=== PATIENT | female | born 1950 | race Caucasian/White ===

== ENCOUNTER 2023-05-12 10:44 | Inpatient (IN) ==
--- NOTE | 2023-05-12 10:50 | Emergency Department Note ---
HPI General Chief complaint: Nausea/Vomiting/Diarrhea Stated complaint: diarrhea, nausea/vomiting Time Seen by Provider: 05/12/23 10:50 Mode of arrival: wheelchair History of Present Illness HPI Narrative: Narrative: Patient is a 72-year-old female with a complex history who presents to the emergency department due to diarrhea and lack of appetite. Patient has been seen 2 times prior to today in the last half week. EMS was called for patient, and they found the patient had tachycardia. Patient is nonverbal, so patient's provides history. He denies any other findings aside from the diarrhea and difficulty getting patient to eat or take medication. Related Data Home Medications Medication Instructions Recorded Confirmed aspirin 81 mg tablet,delayed 81 mg PO QDAY 11/16/19 05/12/23 release (Adult Low Dose Aspirin) acetaminophen 500 mg tablet 500 mg PO Q6H PRN Pain 12/18/20 05/12/23 gabapentin 300 mg capsule 300 mg PO BID 12/23/21 05/12/23 quetiapine 25 mg tablet (Seroquel) 25 mg PO TID PRN Agitation 05/12/23 05/12/23 Previous Rx's Medication Instructions Recorded venlafaxine 75 mg capsule,extended 75 mg PO QDAY anxiety #90 caps 08/01/22 release 24 hr (Effexor XR) venlafaxine 37.5 mg 37.5 mg PO QDAY #90 caps 04/02/23 capsule,extended release 24 hr levothyroxine 50 mcg tablet 50 mcg PO QDAY #30 tabs 04/17/23 (Levoxyl) lisinopril 10 mg tablet 10 mg PO QDAY #90 tabs 04/17/23 Allergies Allergy/AdvReac Type Severity Reaction Status Date / Time Sulfa (Sulfonamide Allergy Mild Rash Verified 05/12/23 14:34 Antibiotics) codeine AdvReac Mild Confusion Verified 05/12/23 14:34 hydrochlorothiazide AdvReac Mild Hypotension Verified 05/12/23 14:34 Review of Systems ROS ROS Narrative: Narrative: Constitutional: Reports weakness; Denies fever ENT ED: Denies rhinorrhea Respiratory: Denies shortness of breath or cough Gastrointestinal: Reports vomiting (On Thursday) and diarrhea; Denies constipation, hematochezia or melena Integumentary: Denies rash or lesions Neurological: Reports weakness; Denies headache or confusion PFSH Narrative Patient History Narrative: Narrative: Medical/Surgical/Family History All Active Problems (Updated 05/13/23 @ 09:25 by Garrison Hartmann MD) Leukocytosis (Acute) Vomiting (Acute) Dehydration (Acute) Pneumonia (Acute) Atrial fibrillation with RVR (Acute) Whit infection (Acute) Lower extremity weakness (Acute) Acute UTI (Acute) Bacterial vaginosis (Acute) COVID-19 (Acute) Acute hypotension (Acute) Dementia (Acute) Bilateral lower extremity edema (Acute) Depression (Chronic) Hx of left knee surgery (Chronic) Laceration (Chronic) Abdominal pain (Chronic) Sleep apnea (Chronic) Pain of lumbar spine with movement (Chronic) Muscle spasm of back (Chronic) Acute hip pain, bilateral (Chronic) Nocturia more than twice per night (Chronic) Sacroiliac strain (Chronic) Allergic rhinitis (Chronic) Decreased hearing of both ears (Chronic) Anemia (Chronic) Hyperlipidemia (Chronic) Hypothyroidism (Chronic) Osteopenia (Chronic) Leukopenia (Chronic) Anxiety (Chronic) Encounter for therapeutic drug level monitoring (Chronic) Hypertension (Chronic) Psoriasis (Chronic) Seborrheic keratosis (Chronic) Libido, decreased (Chronic) Adrenal cortical hyperfunction (Chronic) Vitamin D deficiency (Chronic) Palpitations (Chronic) Hot flashes (Chronic) Insomnia (Chronic) Fatigue (Chronic) Nervousness (Chronic) Poor sleep (Chronic) History of small bowel obstruction (Chronic ~2014) Hematuria (Chronic) Overactive bladder (Chronic) Urinary frequency (Chronic) Bladder spasm (Chronic) Generalized anxiety disorder (Chronic) Cognitive decline (Chronic) Vaginitis due to Whit (Chronic) Bladder incontinence (Chronic) Wellness examination (Chronic) Memory impairment (Chronic) Neck pain (Chronic) Dementia (Chronic) Parkinsonism (Chronic) Hyperreflexia (Chronic) Apraxia (Chronic) Cognitive dysfunction (Chronic) Recurrent UTI (Chronic) Obesity (Chronic) Cervical spondylosis (Chronic) Spondylosis without myelopathy or radiculopathy, cervical region (Acute) Impacted ear wax (Acute) Chronic pain syndrome (Chronic) Chronic intractable pain (Acute) Cervical radiculopathy (Chronic) Occipital neuralgia (Chronic) Medical History Abdominal pain Adrenal cortical hyperfunction Allergic rhinitis Anemia Anxiety Apraxia Cervical radiculopathy Cervical spondylosis Chronic pain syndrome Cognitive dysfunction Decreased hearing of both ears Dementia Depression Encounter for therapeutic drug level monitoring Fatigue Femur fracture left femur fracture 20 years ago. Gastritis output color normal now on IV PPI, continue IV PPI Hot flashes Hyperlipidemia Hyperreflexia Hypertension Hypothyroidism Ileus following gastrointestinal surgery Peter po. STOP TPN, adv diet. Home tomorrow! Insomnia Laceration Leukopenia Libido, decreased Malnutrition Prealbumin was 9, lower limit normal 20. Given prolonged ileus, TPN has started. Cont likely thru tomorrow Neck pain Nervousness Obesity Occipital neuralgia Osteopenia Palpitations Parkinsonism Poor sleep Psoriasis Recurrent UTI Seborrheic keratosis Sleep apnea uses cpap machine nightly since 2009, [employer] for supplies Small bowel obstruction POD #7 s/p Ex Lap for Small Bowel resection, lysis of adhesions. Tolerating diet, adv diet. Wound vac Spondylosis without myelopathy or radiculopathy, cervical region Vitamin D deficiency Wound abscess Continues to improve daily.Cont wound vac, IV abx while here. OK to shower if pt would like. Surgical History History of arthroscopy (~1993) on leg History of bone graft (~1992) History of (~1978) History of colonoscopy (07/29/18) Dr Breaux, normal History of femur fracture (~1991) shattered History of hysterectomy (~2004) 2002 History of knee surgery (~1994) History of neck surgery 07/2021- History of small bowel obstruction (~2014) Hx of left knee surgery had hardware placed Family History Mother , age 69 Hypertension Stroke Osteoporosis Depression Anxiety Father , age 79 CHF (congestive heart failure) Arthritis Dementia Grandmother Breast cancer maternal Osteoporosis paternal Heart disease paternal Grandfather Heart disease Maternal Brother , age 18 & 21 Muscular dystrophy Both brothers from [place] Social History Smoking Status: Unknown if ever smoked Alcohol Intake Frequency: does not drink Substance Use: does not use Exam Narrative Narrative: Narrative: General General appearance: Present alert and in no apparent distress; Absent anxious or sleepy Head Head: Present atraumatic and normocephalic Eye Eye: Present PERRL and EOMI; Absent scleral icterus or nystagmus ENT ENT: Present mucous membranes moist; Absent nasal congestion Neck Neck: Present full ROM and trachea midline Chest Chest: Present normal inspection and symmetric chest wall rise; Absent tenderness Respiratory Respiratory: Present normal lung sounds bilaterally; Absent respiratory distress, rales/crackles, wheezes, stridor or accessory muscle use Cardiovascular Cardiovascular: Present tachycardia, irregular rhythm and normal heart sounds Adbominal Abdominal: Absent distention Extremities Extremities: Present normal inspection and full ROM Back Back: Present normal inspection and full ROM Neurological Neurological: Present alert and oriented X3 Psychiatric Psychiatric: Present normal affect and normal mood Skin Skin: Present warm (WNL), dry and normal color Course Vital Signs Vital signs: Vital Signs Pulse Rate 28 L 05/12/23 10:55 Blood Pressure 147/106 05/12/23 10:55 Temperature 97.4 F 05/13/23 08:09 Pulse Rate 113 H 05/13/23 08:09 Respiratory Rate 24 H 05/13/23 08:09 Blood Pressure 176/98 05/13/23 08:09 Pulse Oximetry (%) 95 05/13/23 08:09 Oxygen Delivery Method Room Air 05/13/23 08:09 Oxygen Flow Rate (L/min) 3 05/12/23 13:52 MDM MDM Narrative Medical decision making narrative: Narrative: Patient is a 72-year-old female who presents to the emergency department due to diarrhea, weakness, and difficulty getting her to eat/drink/take medications. Patient's rate and rhythm at this time appear to be atrial fibrillation with RVR. EKG was performed, and is confirmed to be A-fib with RVR. Patient was given a dose of diltiazem with improvement in rate. Patient's labs are approximate baseline. Because of new onset A-fib I have spoken to Dr. Sales and he has agreed to see and evaluate patient for admission. Lab Data 05/13/23 05:44 05/13/23 05:44 Labs: Lab Results 05/12/23 05/12/23 05/12/23 Range/Units 11:06 11:08 11:08 WBC 7.8 (4.5-11.0) K/mcL RBC 4.29 (3.59-5.38) M/mcL Hgb 12.5 (11.2-15.7) g/dL Hct 39.1 (34.1-44.9) % POC Hct (36-48) MCV 91.1 (80.0-100.0) fL MCH 29.1 (26.0-34.0) pg MCHC 32.0 (31.0-36.0) g/dL RDW 13.4 (11.5-14.5) % Plt Count 243 (140-440) K/mcL MPV 10.3 (8.8-12.5) fL Immature Gran % (Auto) 0.4 (0.0-0.5) % Neut % (Auto) 68.8 (38.0-78.0) % Lymph % (Auto) 19.6 (15.5-49.0) % [place] % (Auto) 10.3 (1.0-12.0) % Eos % (Auto) 0.1 (0.0-7.0) % Baso % (Auto) 0.8 (0.0-2.0) % Lymph # (Auto) 1.52 (1.50-4.80) K/mcL [place] # (Auto) 0.80 (0.10-0.90) K/mcL Eos # (Auto) 0.01 (0.00-0.70) K/mcL Baso # (Auto) 0.06 (0.00-0.30) K/mcL Immature Gran # 0.03 (0.00-0.05) K/mcl Absolute Neutrophils 5.35 (1.80-8.00) K/mcL POC VBG pH 7.50 H (7.32-7.42) POC VBG pCO2 at Temp 32.3 L (41-51) POC VBG pO2 34 (25-40) POC VBG HCO3 24.9 (24-28) POC VBG Total CO2 26.0 (25-29) POC Venous O2 Sat 71.0 H (40-70) POC VBG Base Excess 2.0 (-2-2) VBG Lactic Acid 1.4 (0.5-2) POC Sodium (133-145) POC Potassium (3.3-5.1) POC Chloride (96-108) POC Total CO2 (22-30) POC Anion Gap (8.0-16.0) POC BUN (6-20) POC Creatinine (0.6-1.2) POC Glucose (70-105) POC WB Ioniz Calcium (1.16-1.32) Magnesium 2.0 (1.6-2.5) mg/dL Procalcitonin (<0.10) ng/mL TSH 2.35 (0.27-5.01) uIU/mL 05/12/23 05/12/23 Range/Units 11:08 11:09 WBC (4.5-11.0) K/mcL RBC (3.59-5.38) M/mcL Hgb (11.2-15.7) g/dL Hct (34.1-44.9) % POC Hct 39.0 (36-48) MCV (80.0-100.0) fL MCH (26.0-34.0) pg MCHC (31.0-36.0) g/dL RDW (11.5-14.5) % Plt Count (140-440) K/mcL MPV (8.8-12.5) fL Immature Gran % (Auto) (0.0-0.5) % Neut % (Auto) (38.0-78.0) % Lymph % (Auto) (15.5-49.0) % [place] % (Auto) (1.0-12.0) % Eos % (Auto) (0.0-7.0) % Baso % (Auto) (0.0-2.0) % Lymph # (Auto) (1.50-4.80) K/mcL [place] # (Auto) (0.10-0.90) K/mcL Eos # (Auto) (0.00-0.70) K/mcL Baso # (Auto) (0.00-0.30) K/mcL Immature Gran # (0.00-0.05) K/mcl Absolute Neutrophils (1.80-8.00) K/mcL POC VBG pH (7.32-7.42) POC VBG pCO2 at Temp (41-51) POC VBG pO2 (25-40) POC VBG HCO3 (24-28) POC VBG Total CO2 (25-29) POC Venous O2 Sat (40-70) POC VBG Base Excess (-2-2) VBG Lactic Acid (0.5-2) POC Sodium 144 (133-145) POC Potassium 3.5 (3.3-5.1) POC Chloride 110 H (96-108) POC Total CO2 23.0 (22-30) POC Anion Gap 16.0 (8.0-16.0) POC BUN 23 H (6-20) POC Creatinine 0.7 (0.6-1.2) POC Glucose 129 H (70-105) POC WB Ioniz Calcium 1.13 L (1.16-1.32) Magnesium (1.6-2.5) mg/dL Procalcitonin 0.57 H (<0.10) ng/mL TSH (0.27-5.01) uIU/mL EKG Data EKG #1: EKG attestation: Yes I reviewed and interpreted this EKG. EKG results narrative: Atrial fibrillation with a rate of 135, equivocal axis, QRS of 92, QTc of 455, T wave inversions in leads I and aVL, T wave flattening in leads V5 and V6, and absence of ST elevation or depression. Discharge Plan Patient/Caregiver Discharge Instructions Pt seen by ANALYSIS CONSULTANT/PA only: No Clinical Impression: Atrial fibrillation with RVR Patient Disposition: Xfer As Inpt ([facility]) Condition: Fair Discharge Date/Time: 05/12/23 13:52
[2023-05-12] MEDS ORDERED: 0.9 % SODIUM CHLORIDE 1,000 ML IV ONE (11:01)
[2023-05-12] MEDS ORDERED: DILTIAZEM 25 MG/5 ML VIAL IV ONE (11:11)
[2023-05-12 11:14] LABS: POC Calcium, Ionized 1.13 (1.16-1.32); POC Creatinine 0.7 (0.6-1.2); POC Potassium 3.5 (3.3-5.1)
[2023-05-12 12:14] LABS: Basophils # (Auto) 0.06 K/mcL (0.00-0.30); Basophils % (Auto) 0.8 % (0.0-2.0); Eosinophils # (Auto) 0.01 K/mcL (0.00-0.70); Eosinophils % (Auto) 0.1 % (0.0-7.0); Hematocrit 39.1 % (34.1-44.9); Hemoglobin 12.5 g/dL (11.2-15.7); Lymphocytes # (Auto) 1.52 K/mcL (1.50-4.80); Lymphocytes % (Auto) 19.6 % (15.5-49.0); Mean Cell Volume 91.1 fL (80.0-100.0); Mean Platelet Volume 10.3 fL (8.8-12.5); Monocytes % (Auto) 10.3 % (1.0-12.0); Platelet Count 243 K/mcL (140-440); RBC 4.29 M/mcL (3.59-5.38); Red Cell Distribution Width 13.4 % (11.5-14.5); WBC 7.8 K/mcL (4.5-11.0)
--- NOTE | 2023-05-12 13:07 | Internal Med History&Physical ---
HPI History of Present Illness Patient information: Note initiated : 05/12/23 at 12:58 pm Service Date, if different from initiated Date: [] Patient: Tiffanie Rg a 72 y/o F admitted on for diarrhea, nausea/vomiting. Chief Complaint: [] History of present illness: Ms. Rg is a 72 year old F Presents to the ED with increasing weakness. She been to the ED several times was hydrated up with improvement and returned back home. She has advanced dementia is nonverbal and has decreasing appetite. Goals of care and end-of-life discussions were started with who is a resistant to the conversation at first but has since started to possibly accept her situation per discussion in ED with ED provider. She has had diarrhea as well and is found to have tachycardia that was atrial fibrillation today. She was given a diltiazem bolus dose with improvement. BUN/creatinine ratio was elevated but improved from yesterday. Review of systems: Unable to obtain given patient's advanced dementia PHYSICAL EXAM General: Alert, Awake, No acute Distress, obese Eyes/N/T: EOMI, no scleral icterus, PERRL, dry MM Head/Neck: neck supple, full ROM, normocephalic atraumatic CV: Tacky and irregular, No murmurs, normal s1/s2 Pulm: Clear b/l, no wheezing/rhonchi/rales, no respiratory distress Abd: soft, nontender, +BS x4 Ext: no clubbing/cyanosis, trace b/l LE edema, nontender Neuro: Alert, non-verbal but follows some commands, moves all extremities, Psychiatric: Skin: warm/dry, normal color PFSH PFSH All Active Problems (Updated 05/11/23 @ 15:05 by Garrison Hartmann MD) Leukocytosis (Acute) Vomiting (Acute) Dehydration (Acute) Pneumonia (Acute) Whit infection (Acute) Lower extremity weakness (Acute) Acute UTI (Acute) Bacterial vaginosis (Acute) COVID-19 (Acute) Acute hypotension (Acute) Dementia (Acute) Bilateral lower extremity edema (Acute) Depression (Chronic) Hx of left knee surgery (Chronic) Laceration (Chronic) Abdominal pain (Chronic) Sleep apnea (Chronic) Pain of lumbar spine with movement (Chronic) Muscle spasm of back (Chronic) Acute hip pain, bilateral (Chronic) Nocturia more than twice per night (Chronic) Sacroiliac strain (Chronic) Allergic rhinitis (Chronic) Decreased hearing of both ears (Chronic) Anemia (Chronic) Hyperlipidemia (Chronic) Hypothyroidism (Chronic) Osteopenia (Chronic) Leukopenia (Chronic) Anxiety (Chronic) Encounter for therapeutic drug level monitoring (Chronic) Hypertension (Chronic) Psoriasis (Chronic) Seborrheic keratosis (Chronic) Libido, decreased (Chronic) Adrenal cortical hyperfunction (Chronic) Vitamin D deficiency (Chronic) Palpitations (Chronic) Hot flashes (Chronic) Insomnia (Chronic) Fatigue (Chronic) Nervousness (Chronic) Poor sleep (Chronic) History of small bowel obstruction (Chronic ~2014) Hematuria (Chronic) Overactive bladder (Chronic) Urinary frequency (Chronic) Bladder spasm (Chronic) Generalized anxiety disorder (Chronic) Cognitive decline (Chronic) Vaginitis due to Whit (Chronic) Bladder incontinence (Chronic) Wellness examination (Chronic) Memory impairment (Chronic) Neck pain (Chronic) Dementia (Chronic) Parkinsonism (Chronic) Hyperreflexia (Chronic) Apraxia (Chronic) Cognitive dysfunction (Chronic) Recurrent UTI (Chronic) Obesity (Chronic) Cervical spondylosis (Chronic) Spondylosis without myelopathy or radiculopathy, cervical region (Acute) Impacted ear wax (Acute) Chronic pain syndrome (Chronic) Chronic intractable pain (Acute) Cervical radiculopathy (Chronic) Occipital neuralgia (Chronic) Medical History Abdominal pain Adrenal cortical hyperfunction Allergic rhinitis Anemia Anxiety Apraxia Cervical radiculopathy Cervical spondylosis Chronic pain syndrome Cognitive dysfunction Decreased hearing of both ears Dementia Depression Encounter for therapeutic drug level monitoring Fatigue Femur fracture left femur fracture 20 years ago. Gastritis output color normal now on IV PPI, continue IV PPI Hot flashes Hyperlipidemia Hyperreflexia Hypertension Hypothyroidism Ileus following gastrointestinal surgery Peter po. STOP TPN, adv diet. Home tomorrow! Insomnia Laceration Leukopenia Libido, decreased Malnutrition Prealbumin was 9, lower limit normal 20. Given prolonged ileus, TPN has started. Cont likely thru tomorrow Neck pain Nervousness Obesity Occipital neuralgia Osteopenia Palpitations Parkinsonism Poor sleep Psoriasis Recurrent UTI Seborrheic keratosis Sleep apnea uses cpap machine nightly since 2009, [employer] for supplies Small bowel obstruction POD #7 s/p Ex Lap for Small Bowel resection, lysis of adhesions. Tolerating diet, adv diet. Wound vac Spondylosis without myelopathy or radiculopathy, cervical region Vitamin D deficiency Wound abscess Continues to improve daily.Cont wound vac, IV abx while here. OK to shower if pt would like. Surgical History History of arthroscopy (~1993) on leg History of bone graft (~1992) History of (~1978) History of colonoscopy (07/29/18) Dr Breaux, normal History of femur fracture (~1991) shattered History of hysterectomy (~2004) 2002 History of knee surgery (~1994) History of neck surgery 07/2021- History of small bowel obstruction (~2014) Hx of left knee surgery had hardware placed Family History Mother , age 69 Hypertension Stroke Osteoporosis Depression Anxiety Father , age 79 CHF (congestive heart failure) Arthritis Dementia Grandmother Breast cancer maternal Osteoporosis paternal Heart disease paternal Grandfather Heart disease Maternal Brother , age 18 & 21 Muscular dystrophy Both brothers from [place] Social History household members: spouse marital status: education level: college occupation: House other: Hobbies: Gardening, Reading, Scrapbooking physical activity: walking frequency: 3-4 times per week smoking status: Unknown if ever smoked alcohol intake frequency: does not drink substance use type: does not use cristina/yazidi: Gnosticism additional history: Has 1 child, 1 grandchild MEDS/ALLERGIES Home Medications and Allergies Home Medications Medication Instructions Recorded Confirmed Type aspirin 81 mg tablet,delayed 81 mg PO QDAY 11/16/19 04/08/23 History release (Adult Low Dose Aspirin) acetaminophen 500 mg tablet 500 mg PO Q6H PRN Pain 12/18/20 04/08/23 History gabapentin 300 mg capsule 300 mg PO BID 12/23/21 04/08/23 History venlafaxine 75 mg capsule,extended 75 mg PO QDAY anxiety #90 caps 08/01/22 04/08/23 Rx release 24 hr (Effexor XR) mupirocin 2 % topical ointment 1 applic topical TID #15 grams 08/12/22 04/08/23 Rx nystatin 100,000 unit/gram topical 1 applic topical QID #30 grams 01/23/23 04/08/23 Rx ointment quetiapine 25 mg tablet (Seroquel) 25 mg PO TID PRN withdrawal 01/23/23 04/08/23 Rx symptoms #90 tabs venlafaxine 37.5 mg 37.5 mg PO QDAY #90 caps 04/02/23 04/08/23 Rx capsule,extended release 24 hr levothyroxine 50 mcg tablet 50 mcg PO QDAY #30 tabs 04/17/23 Rx (Levoxyl) lisinopril 10 mg tablet 10 mg PO QDAY #90 tabs 04/17/23 Rx azithromycin 250 mg tablet 250 mg PO QDAY 4 days #4 tabs 05/09/23 Rx cefdinir 300 mg capsule 300 mg PO BID #12 caps 05/09/23 Rx Allergies Allergy/AdvReac Type Severity Reaction Status Date / Time codeine Allergy Intermediate Confusion Verified 05/12/23 11:01 Sulfa (Sulfonamide Allergy Intermediate Rash Verified 05/12/23 11:01 Antibiotics) hydrochlorothiazide AdvReac Intermediate Hypotension Verified 05/12/23 11:01 EXAM Constitutional Vitals: Temp Pulse Resp BP Pulse Ox O2 Del Method 97.6 F 108 H 22 135/91 95 Room Air 05/12/23 10:59 05/12/23 12:31 05/12/23 12:35 05/12/23 12:31 05/12/23 10:59 05/12/23 10:59 DATA Data Completed and Pending Labs: Labs from last 24 hours 05/12/23 05/12/23 05/12/23 11:09 11:08 11:08 WBC RBC Hgb Hct POC Hct 39.0 MCV MCH MCHC RDW Plt Count MPV Immature Gran % (Auto) Neut % (Auto) Lymph % (Auto) [place] % (Auto) Eos % (Auto) Baso % (Auto) Lymph # (Auto) [place] # (Auto) Eos # (Auto) Baso # (Auto) Immature Gran # Absolute Neutrophils POC VBG pH POC VBG pCO2 at Temp POC VBG pO2 POC VBG HCO3 POC VBG Total CO2 POC Venous O2 Sat POC VBG Base Excess VBG Lactic Acid POC Sodium 144 POC Potassium 3.5 POC Chloride 110 H POC Total CO2 23.0 POC Anion Gap 16.0 POC BUN 23 H POC Creatinine 0.7 POC Glucose 129 H POC WB Ioniz Calcium 1.13 L Magnesium Pending Procalcitonin Pending TSH Pending 05/12/23 05/12/23 11:08 11:06 WBC 7.8 RBC 4.29 Hgb 12.5 Hct 39.1 POC Hct MCV 91.1 MCH 29.1 MCHC 32.0 RDW 13.4 Plt Count 243 MPV 10.3 Immature Gran % (Auto) 0.4 Neut % (Auto) 68.8 Lymph % (Auto) 19.6 [place] % (Auto) 10.3 Eos % (Auto) 0.1 Baso % (Auto) 0.8 Lymph # (Auto) 1.52 [place] # (Auto) 0.80 Eos # (Auto) 0.01 Baso # (Auto) 0.06 Immature Gran # 0.03 Absolute Neutrophils 5.35 POC VBG pH 7.50 H POC VBG pCO2 at Temp 32.3 L POC VBG pO2 34 POC VBG HCO3 24.9 POC VBG Total CO2 26.0 POC Venous O2 Sat 71.0 H POC VBG Base Excess 2.0 VBG Lactic Acid 1.4 POC Sodium POC Potassium POC Chloride POC Total CO2 POC Anion Gap POC BUN POC Creatinine POC Glucose POC WB Ioniz Calcium Magnesium Procalcitonin TSH A/P Narrative A/P Narrative: A: *A-fib RVR(new): -ABCD=4 *Diarrhea: *Advanced dementia with poor appetite and generalized decline *Generalized weakness/deconditioning: *Volume depletion: *Obesity: BMI 37 *EMILY on CPAP: *HTN: *Depression/anxiety: *Hypothyroidism: Check TSH and continue Synthroid *Goals of care: P: -lopressor -discuss AC with -monitor tele -echo -IVF -stool studies -UA - -cont home ACEI, asa, psych meds -Home medication reconciliation -pt/OT - -Goals of care discussion with -CM for placement -ppx: Lovenox Time Spent With Patient Time: Total time spent is greater than 50% in coordination of care (as documented) at patient's floor/unit and/or counseling patient: Initial: Total time with patient: 75 - 90 minutes
[2023-05-12 13:08] LABS: Neutrophils % (Auto) 68.8 % (38.0-78.0)
[2023-05-12 13:23] LABS: Thyroid Stimulating Hormone 2.35 uIU/mL (0.27-5.01)
[2023-05-12] MEDS ORDERED: POTASSIUM CHLORIDE 40 MEQ in DEXTROSE 5% IN WATER 500 ML IV PRN (14:04)
[2023-05-12] MEDS ORDERED: IPRATROPIUM/ALBUTEROL 3 ML AMPUL.NEB NEB PRN (14:04)
[2023-05-12] MEDS ORDERED: POTASSIUM CHLORIDE 20 MEQ TABLET PO PRN ×2 (14:04)
[2023-05-12] MEDS ORDERED: ONDANSETRON 4 MG/2 ML VIAL IV PRN (14:04)
[2023-05-12] MEDS ORDERED: MAGNESIUM SULFATE 2 GM/50 ML BAG IV PRN (14:04)
--- NOTE | 2023-05-12 14:10 | EKG ---
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
[2023-05-12] MEDS: 0.9 % SODIUM CHLORIDE 1,000 ML IV SCH (14:12)
[2023-05-12] MEDS: cefTRIAXone 2 GM in DEXTROSE 5% IN WATER 50 ML IV SCH (14:21)
[2023-05-12] MEDS: AZITHROMYCIN 500 MG in DEXTROSE 5% IN WATER 250 ML IV SCH (16:24)
[2023-05-12 16:50] LABS: Appearance,Urine TURBID (Clear); Bilirubin,Urine Negative (Negative); Color,Urine Yellow; Culture Indicated,Urine yes; Glucose,Urine (UA) Negative (Negative); Ketones,Urine 20 mg/dL (Negative); Leukocyte Esterase,Urine 500 /uL (Negative); Mucus,Urine FEW /hpf; Nitrate,Urine Negative (Negative); Protein,Urine 100 mg/dL (Negative); Specific Gravity,Urine 1.025 (1.000-1.035); Urine Blood >=1.0 mg/dL (Negative); Urine RBC 43 /hpf (0-3); Urine Squamous Epithelial Cell 1 /hpf (0-4); Urine WBC > 182 /hpf (0-4); Urobilinogen,Urine Negative
[2023-05-12] MEDS: METOPROLOL TARTRATE 5 MG/5 ML VIAL IV PRN (19:15)
[2023-05-12] MEDS: ENOXAPARIN 40 MG/0.4 ML SYRINGE SQ SCH (21:11)
[2023-05-12] MEDS: METOPROLOL TARTRATE 25 MG TABLET PO SCH (21:11)
[2023-05-13] MEDS: METOPROLOL TARTRATE 5 MG/5 ML VIAL IV PRN ×3 (00:28→18:30)
[2023-05-13] MEDS: 0.9 % SODIUM CHLORIDE 1,000 ML IV SCH (02:28)
[2023-05-13 07:21] LABS: Basophils # (Auto) 0.05 K/mcL (0.00-0.30); Basophils % (Auto) 0.9 % (0.0-2.0); Eosinophils # (Auto) 0.02 K/mcL (0.00-0.70); Eosinophils % (Auto) 0.4 % (0.0-7.0); Hematocrit 38.2 % (34.1-44.9); Lymphocytes # (Auto) 1.66 K/mcL (1.50-4.80); Lymphocytes % (Auto) 29.7 % (15.5-49.0); Mean Cell Volume 93.6 fL (80.0-100.0); Mean Corpuscular HGB Conc 31.4 g/dL (31.0-36.0); Mean Platelet Volume 10.5 fL (8.8-12.5); Monocytes # (Auto) 0.87 K/mcL (0.10-0.90); Monocytes % (Auto) 15.6 % (1.0-12.0); Platelet Count 251 K/mcL (140-440); RBC 4.08 M/mcL (3.59-5.38); Red Cell Distribution Width 13.4 % (11.5-14.5)
[2023-05-13] MEDS: ENOXAPARIN 40 MG/0.4 ML SYRINGE SQ SCH (07:30)
[2023-05-13] MEDS: cefTRIAXone 2 GM in DEXTROSE 5% IN WATER 50 ML IV SCH (07:30)
[2023-05-13] MEDS: METOPROLOL TARTRATE 25 MG TABLET PO SCH ×2 (07:30→20:54)
[2023-05-13 07:34] LABS: ALT/SGPT 79 U/L (<40); AST/SGOT 84 U/L (<32); Albumin 2.6 gm/dL (3.2-5.2); Albumin/Globulin Ratio 0.9 (1.0-2.3); Alkaline Phosphatase 81 U/L (39-117); Bilirubin,Direct < 0.2 mg/dL (0-0.3); Bilirubin,Total 0.3 mg/dL (0.1-1.0); Blood Urea Nitrogen 14 mg/dL (8-23); Carbon Dioxide 19 mmol/L (22-30); Chloride 112 mmol/L (96-108); Globulin 2.8 gm/dL (2.2-3.7); Glomerular Filtration Rate 89; Glucose 123 mg/dL (70-105); Lactate Dehydrogenase 270 U/L (135-225); Phosphorous 1.6 mg/dL (2.5-4.5); Triglycerides 102 mg/dL (<150); Uric Acid 3.7 mg/dL (2.5-8.0)
[2023-05-13 07:48] LABS: WBC 5.6 K/mcL (4.5-11.0)
[2023-05-13] MEDS ORDERED: QUEtiapine 25 MG TABLET PO PRN (07:48)
--- NOTE | 2023-05-13 07:52 | Internal Med Progress Note ---
SUBJECTIVE Subjective Patient information: Note initiated : 05/13/23 at 7:43 am Service Date, if different from initiated Date: [] Patient: Tiffanie Rg 72 y/o F admitted on 05/12/23 for diarrhea, n ausea/vomiting. Chief Complaint: [] Interval history: History of present illness: Ms. Rg is a 72 year old F Presents to the ED with increasing weakness. She been to the ED several times was hydrated up with improvement and returned back home. She has advanced dementia is nonverbal and has decreasing appetite. Goals of care and end-of-life discussions were started with who is a resistant to the conversation at first but has since started to possibly accept her situation per discussion in ED with ED provider. She has had diarrhea as well and is found to have tachycardia that was atrial fibrillation today. She was given a diltiazem bolus dose with improvement. BUN/creatinine ratio was elevated but improved from yesterday. 05/13 No overnight events. Diarrhea overnight and pending fecal WBCs. C. difficile negative. suspected bandemia on auto differential, manual differential pending. hypophosphatemia. Mild transaminitis. PCT elevated Review of systems: Unable to obtain given patient's advanced dementia PHYSICAL EXAM General: Alert, Awake, No acute Distress, obese Eyes/N/T: EOMI, no scleral icterus, Head/Neck: neck supple, full ROM, CV: Tacky and irregular, No murmurs, Pulm: Clear b/l, no wheezing/rhonchi/rales, no respiratory distress Abd: soft, nontender, +BS x4 Ext: no clubbing/cyanosis, trace b/l LE edema, nontender Neuro: Alert, non-verbal but follows some commands, moves all extremities, Psychiatric: Skin: warm/dry, normal color Constitutional Vitals: Vital Signs Temp Pulse Resp BP Pulse Ox O2 Del Method O2 Flow Rate 100.3 F H 106 H 26 H 144/98 94 Room Air 3 05/13/23 04:01 05/13/23 06:01 05/13/23 06:01 05/13/23 06:01 05/13/23 06:40 05/13/23 06:40 05/12/23 13:52 Period Temp Pulse Resp BP Sys/Cole Pulse Ox O2 Del Method O2 Flow Rate Last 24 Hr 97.6 F-100.3 F 28-140 17-27 114-171/59-106 85-97 Room Air-Room Air 3 Intake and Output 05/12/23 05/13/23 05/13/23 19:59 03:59 11:59 Intake Total 1420 1060 Output Total 150 101 2 Balance 1270 959 -2 Weight 103.328 kg Intake & Output: Intake & Output 05/12/23 05/13/23 05/13/23 19:59 03:59 11:59 Intake Total 1420 1060 Output Total 150 101 2 Balance 1270 959 -2 Weight 103.328 kg Intake: IV 1300 1000 Sodium Chloride 0.9% 1,000 ml @ 1000 1000 100 mls/hr IV .Q10H [facility] Rx#: [id number] Zithromax 500 mg In Dextrose 5% 250 in Water 250 ml @ 250 mls/hr IV Q24H [facility] Rx#:[id number] Rocephin 2 gm In Dextrose 5% in 50 Water 50 ml @ 100 mls/hr IV Q24H [facility] Rx#:[id number] Oral 120 60 Output: Void Amount 150 100 # of times incontinent of urine 1 2 Other: Meal Apple sauce Percent of Meal Consumed 100% Feeding Ability Total Assistance Urine Appearance Clear Clear Urine Color Bright Yellow Bright Yellow Yellow Stool Size Small Smear Small Stool Color Brown Brown Brown Yellow Yellow Stool Consistency Liquid Liquid Loose # of times incontinent of 1 1 1 Bowels OBJ DATA Labs 05/13/23 05:44 05/13/23 05:44 Labs: Abnormal Lab Results 05/13/23 05/13/23 05/12/23 05:44 05:44 16:00 Immature Gran % (Auto) 1.4 H [place] % (Auto) 15.6 H Immature Gran # 0.08 H POC VBG pH POC VBG pCO2 at Temp POC Venous O2 Sat POC Chloride Chloride 112 H Carbon Dioxide 19 L POC BUN Glucose 123 H POC Glucose Calcium 8.0 L POC WB Ioniz Calcium Phosphorus 1.6 L AST 84 H ALT 79 H Lactate Dehydrogenase 270 H Total Protein 5.4 L Albumin 2.6 L Albumin/Globulin Ratio 0.9 L Procalcitonin Urine Appearance Turbid A Urine Protein 100 A Urine Ketones 20 A Urine Occult Blood >=1.0 A Ur Leukocyte Esterase 500 A Urine RBC 43 H Urine WBC > 182 H Urine Mucus Few A 05/12/23 05/12/23 05/12/23 11:09 11:08 11:06 Immature Gran % (Auto) [place] % (Auto) Immature Gran # POC VBG pH 7.50 H POC VBG pCO2 at Temp 32.3 L POC Venous O2 Sat 71.0 H POC Chloride 110 H Chloride Carbon Dioxide POC BUN 23 H Glucose POC Glucose 129 H Calcium POC WB Ioniz Calcium 1.13 L Phosphorus AST ALT Lactate Dehydrogenase Total Protein Albumin Albumin/Globulin Ratio Procalcitonin 0.57 H Urine Appearance Urine Protein Urine Ketones Urine Occult Blood Ur Leukocyte Esterase Urine RBC Urine WBC Urine Mucus Meds: Medications Albuterol/Ipratropium (Ipratropium/Albuterol 3 Ml Ampul.Neb) 3 ml NEB Q4HP PRN PRN Reason: Shortness Of Breath Enoxaparin Sodium (Enoxaparin 40 Mg/0.4 Ml Syringe) 40 mg SQ BID [facility] Last Admin: 05/13/23 07:30 Dose: 40 mg Potassium Chloride 40 meq/ (Dextrose) 520 mls @ 130 mls/hr IV UD PRN PRN Reason: Potassium Level < 3 Magnesium Sulfate (Magnesium Sulfate) 2 gm in 50 mls @ 25 mls/hr IV UD PRN PRN Reason: Magnesium Level </= 1.6 Sodium Chloride (Sodium Chloride 0.9%) 1,000 mls @ 100 mls/hr IV .Q10H [facility] Stop: 05/13/23 10:03 Last Admin: 05/13/23 02:28 Dose: 100 mls/hr Ceftriaxone Sodium 2 gm/ (Dextrose) 50 mls @ 100 mls/hr IV Q24H [facility]; Protocol Last Admin: 05/13/23 07:30 Dose: 100 mls/hr Azithromycin 500 mg/ Dextrose 250 mls @ 250 mls/hr IV Q24H [facility]; Protocol Stop: 05/14/23 15:59 Last Infusion: 05/12/23 17:32 Dose: Infused Metoprolol Tartrate (Metoprolol Tartrate 5 Mg/5 Ml Vial) 5 mg IV Q2HP PRN PRN Reason: Tachyarrhythmias HR>110 Last Admin: 05/13/23 04:58 Dose: 5 mg Metoprolol Tartrate (Metoprolol Tartrate 25 Mg Tablet) 25 mg PO BID [facility] Last Admin: 05/13/23 07:30 Dose: 25 mg Ondansetron HCl (Ondansetron 4 Mg/2 Ml Vial) 4 mg IV Q4HP PRN PRN Reason: Nausea And Vomiting Potassium Chloride (Potassium Chloride 20 Meq Tablet) 40 meq PO UD PRN PRN Reason: Potassium Level of 3-3.5 Last Admin: 05/12/23 19:15 Dose: 40 meq Potassium Chloride (Potassium Chloride 20 Meq Tablet) 40 meq PO UD PRN PRN Reason: Potassium Level < 3 A/P Narrative A/P Narrative: A: *A-fib RVR(new): -ABCD=4 *Diarrhea: cdiff neg, enteric path neg, fecal wbc *Advanced dementia with poor appetite and generalized decline / FTT: *Generalized weakness/deconditioning: *Volume depletion: improving *Hypophosphatemia: *Transaminitis, mild: Monitor *UTI( ): *PNA(LLL): pct mildly improved *Sepsis: 2/2 above -bandemia 27% *Obesity: BMI 37 *EMILY on CPAP: *HTN: *Depression/anxiety: *Hypothyroidism: TSH wnl, continue Synthroid *Goals of care: P: -lopressor PO titrate and prn IV -discuss AC with -monitor tele -echo -IVF -man diff -fecal wbc pending -rocephin/azithro pending uc/sc, mrsa screen -cont home ACEI, asa, psych meds -pt/OT -Goals of care discussion with -CM for placement -ppx: Lovenox bid code status: Time Spent With Patient Time: Total time spent is greater than 50% in coordination of care (as documented) at patient's floor/unit and/or counseling patient: Subsequent: Total time with patient: 50 - 65 Minutes
[2023-05-13] MEDS: ASPIRIN 81 MG TAB.CHEW PO SCH (08:27)
[2023-05-13] MEDS: NEUTRA PHOS 1 PACKET PO SCH ×2 (08:27→20:55)
[2023-05-13] MEDS: LISINOPRIL 10 MG TABLET PO SCH (08:27)
[2023-05-13] MEDS: GABAPENTIN 300 MG CAPSULE PO SCH ×2 (08:27→20:55)
[2023-05-13] MEDS: AZITHROMYCIN 500 MG in DEXTROSE 5% IN WATER 250 ML IV SCH (08:27)
[2023-05-13] MEDS: LEVOTHYROXINE 50 MCG TABLET PO SCH (08:41)
[2023-05-13] MEDS ORDERED: ENOXAPARIN 60 MG/0.6 ML SYRINGE SQ ONE (08:45)
[2023-05-13] MEDS ORDERED: METOPROLOL TARTRATE 25 MG TABLET PO ONE (09:01)
[2023-05-13] MEDS: VENLAFAXINE 75 MG CAP.XL.24H PO SCH (10:01)
[2023-05-13 10:02] LABS: Band Neutrophils % 27 % (0-10); Dohle Bodies 1+ (None Seen); Eosinophils % (Manual) 1 % (0-7); Lymphocytes % 30 % (15-49); Metamyelocytes % 2 %; Monocytes % (Manual) 17 % (1-12); Platelet Estimate NORMAL (Normal); Polychromasia FEW (None Seen); RBC Morphology ABNORMAL (Normal); Reactive Lymphocytes 2 % (0-2); Segmented Neutrophils % 21 % (38-78)
[2023-05-13] MEDS: VENLAFAXINE 37.5 MG TAB.ER.24H PO SCH (10:02)
[2023-05-13] MEDS: 0.9 % SODIUM CHLORIDE 10 ML SYRINGE IV SCH ×3 (18:30→23:37)
[2023-05-13] MEDS: LOPERAMIDE 2 MG CAPSULE PO PRN ×2 (20:54→23:34)
[2023-05-13] MEDS: ENOXAPARIN 100 MG/ML SYRINGE SQ SCH (20:54)
[2023-05-14] MEDS: METOPROLOL TARTRATE 5 MG/5 ML VIAL IV PRN ×2 (02:01→07:43)
[2023-05-14] MEDS: 0.9 % SODIUM CHLORIDE 10 ML SYRINGE IV SCH ×4 (02:02→21:50)
[2023-05-14] MEDS: LOPERAMIDE 2 MG CAPSULE PO PRN ×2 (04:43→07:43)
[2023-05-14 06:41] LABS: Hematocrit 38.1 % (34.1-44.9); Hemoglobin 11.9 g/dL (11.2-15.7); Mean Cell Volume 94.1 fL (80.0-100.0); Mean Corpuscular HGB Conc 31.2 g/dL (31.0-36.0); Mean Platelet Volume 10.2 fL (8.8-12.5); Platelet Count 259 K/mcL (140-440); RBC 4.05 M/mcL (3.59-5.38); Red Cell Distribution Width 13.6 % (11.5-14.5); WBC 7.5 K/mcL (4.5-11.0)
[2023-05-14 07:00] LABS: ALT/SGPT 89 U/L (<40); AST/SGOT 62 U/L (<32); Albumin 2.3 gm/dL (3.2-5.2); Albumin/Globulin Ratio 0.8 (1.0-2.3); Alkaline Phosphatase 90 U/L (39-117); Bilirubin,Direct < 0.2 mg/dL (0-0.3); Bilirubin,Total 0.2 mg/dL (0.1-1.0); Blood Urea Nitrogen 12 mg/dL (8-23); Calcium 8.1 mg/dL (8.6-10.4); Carbon Dioxide 20 mmol/L (22-30); Chloride 110 mmol/L (96-108); Globulin 2.9 gm/dL (2.2-3.7); Glomerular Filtration Rate 89; Glucose 128 mg/dL (70-105); Lactate Dehydrogenase 244 U/L (135-225); Phosphorous 3.6 mg/dL (2.5-4.5); Triglycerides 100 mg/dL (<150); Uric Acid 3.8 mg/dL (2.5-8.0)
--- NOTE | 2023-05-14 07:37 | Internal Med Progress Note ---
SUBJECTIVE Subjective Patient information: Note initiated : 05/14/23 at 7:32 am Service Date, if different from initiated Date: [] Patient: Tiffanie Rg 72 y/o F admitted on 05/12/23 for diarrhea, n ausea/vomiting. Chief Complaint: [] Interval history: History of present illness: Ms. Rg is a 72 year old F Presents to the ED with increasing weakness. She been to the ED several times was hydrated up with improvement and returned back home. She has advanced dementia is nonverbal and has decreasing appetite. Goals of care and end-of-life discussions were started with who is a resistant to the conversation at first but has since started to possibly accept her situation per discussion in ED with ED provider. She has had diarrhea as well and is found to have tachycardia that was atrial fibrillation today. She was given a diltiazem bolus dose with improvement. BUN/creatinine ratio was elevated but improved from yesterday. 05/13 No overnight events. Diarrhea overnight and pending fecal WBCs. C. difficile negative. suspected bandemia on auto differential, manual differential pending. hypophosphatemia. Mild transaminitis. PCT elevated 05/14 Heart rate overall better but not optimized. We will try amnio bolu, continue on anticoagulation. Bandemia persistent. Pending blood and urine cultures. Phos improved with replacement, will monitor. Transaminitis. Review of systems: Unable to obtain given patient's advanced dementia PHYSICAL EXAM General: Alert, Awake, No acute Distress, obese Eyes/N/T: EOMI, no scleral icterus, Head/Neck: neck supple, full ROM, CV: mildly Tacky and irregular, No murmurs, Pulm: Clear b/l, no wheezing/rhonchi/rales, no respiratory distress Abd: soft, nontender, +BS x4 Ext: no clubbing/cyanosis, trace b/l LE edema, nontender Neuro: Alert, non-verbal but follows some commands, moves all extremities, Psychiatric: Skin: warm/dry, normal color Constitutional Vitals: Vital Signs Temp Pulse Resp BP Pulse Ox O2 Del Method O2 Flow Rate 97.8 F 105 H 20 109/56 95 Nasal Cannula 1 05/14/23 02:11 05/14/23 04:01 05/14/23 04:01 05/14/23 04:01 05/14/23 04:01 05/14/23 04:01 05/14/23 04:01 Period Temp Pulse Resp BP Sys/Cole Pulse Ox O2 Del Method O2 Flow Rate Last 24 Hr 97.4 F-99.6 F 62-119 20-30 109-176/53-98 92-97 Nasal Cannula- Room Air 1-1 Intake and Output 05/13/23 05/14/23 05/14/23 19:59 03:59 11:59 Intake Total 1680 120 Output Total 1 2 1 Balance 1679 -2 119 Weight 103.283 kg Intake & Output: Intake & Output 05/13/23 05/14/23 05/14/23 19:59 03:59 11:59 Intake Total 1680 120 Output Total 1 2 1 Balance 1679 -2 119 Weight 103.283 kg Intake: IV 1000 Sodium Chloride 0.9% 1,000 ml @ 1000 100 mls/hr IV .Q10H [facility] Rx#: [id number] Oral 680 120 Output: # of times incontinent of urine 1 2 1 Other: Meal Dinner Percent of Meal Consumed 90% Feeding Ability Total Assistance Stool Size Smear Moderate Large Stool Color Brown Brown Brown Stool Consistency Liquid Liquid Loose # Voids 1 # Bowel Movements 1 # of times incontinent of 1 1 1 Bowels OBJ DATA Labs 05/14/23 05:48 05/14/23 05:48 Labs: Abnormal Lab Results 05/14/23 05/13/23 05/13/23 05:48 09:19 06:04 Immature Gran % (Auto) [place] % (Auto) Seg Neutrophils % 21 L Band Neutrophils % 27 H Monocytes % (Manual) 17 H Immature Gran # WBC Morphology Abnormal A Dohle Bodies 1+ A RBC Morphology Abnormal A Polychromasia Few A POC VBG pH POC VBG pCO2 at Temp POC Venous O2 Sat POC Chloride Chloride 110 H Carbon Dioxide 20 L POC BUN Glucose 128 H POC Glucose Calcium 8.1 L POC WB Ioniz Calcium Phosphorus GGT 48 H AST 62 H ALT 89 H Lactate Dehydrogenase 244 H Total Protein 5.2 L Albumin 2.3 L Albumin/Globulin Ratio 0.8 L Procalcitonin 0.43 H Urine Appearance Urine Protein Urine Ketones Urine Occult Blood Ur Leukocyte Esterase Urine RBC Urine WBC Urine Mucus 05/13/23 05/13/23 05/12/23 05:44 05:44 16:00 Immature Gran % (Auto) 1.4 H [place] % (Auto) 15.6 H Seg Neutrophils % Band Neutrophils % Monocytes % (Manual) Immature Gran # 0.08 H WBC Morphology Dohle Bodies RBC Morphology Polychromasia POC VBG pH POC VBG pCO2 at Temp POC Venous O2 Sat POC Chloride Chloride 112 H Carbon Dioxide 19 L POC BUN Glucose 123 H POC Glucose Calcium 8.0 L POC WB Ioniz Calcium Phosphorus 1.6 L GGT AST 84 H ALT 79 H Lactate Dehydrogenase 270 H Total Protein 5.4 L Albumin 2.6 L Albumin/Globulin Ratio 0.9 L Procalcitonin Urine Appearance Turbid A Urine Protein 100 A Urine Ketones 20 A Urine Occult Blood >=1.0 A Ur Leukocyte Esterase 500 A Urine RBC 43 H Urine WBC > 182 H Urine Mucus Few A 05/12/23 05/12/23 05/12/23 11:09 11:08 11:06 Immature Gran % (Auto) [place] % (Auto) Seg Neutrophils % Band Neutrophils % Monocytes % (Manual) Immature Gran # WBC Morphology Dohle Bodies RBC Morphology Polychromasia POC VBG pH 7.50 H POC VBG pCO2 at Temp 32.3 L POC Venous O2 Sat 71.0 H POC Chloride 110 H Chloride Carbon Dioxide POC BUN 23 H Glucose POC Glucose 129 H Calcium POC WB Ioniz Calcium 1.13 L Phosphorus GGT AST ALT Lactate Dehydrogenase Total Protein Albumin Albumin/Globulin Ratio Procalcitonin 0.57 H Urine Appearance Urine Protein Urine Ketones Urine Occult Blood Ur Leukocyte Esterase Urine RBC Urine WBC Urine Mucus Meds: Medications Albuterol/Ipratropium (Ipratropium/Albuterol 3 Ml Ampul.Neb) 3 ml NEB Q4HP PRN PRN Reason: Shortness Of Breath Last Admin: 05/13/23 12:34 Dose: 3 ml Aspirin (Aspirin 81 Mg Tab.Chew) 81 mg PO DAILY [facility] Last Admin: 05/13/23 08:27 Dose: 81 mg Enoxaparin Sodium (Enoxaparin 100 Mg/Ml Syringe) 100 mg SQ BID [facility] [place] Last Admin: 05/13/23 20:54 Dose: 100 mg Gabapentin (Gabapentin 300 Mg Capsule) 300 mg PO BID [facility] [place] Last Admin: 05/13/23 20:55 Dose: 300 mg Potassium Chloride 40 meq/ (Dextrose) 520 mls @ 130 mls/hr IV UD PRN PRN Reason: Potassium Level < 3 Magnesium Sulfate (Magnesium Sulfate) 2 gm in 50 mls @ 25 mls/hr IV UD PRN PRN Reason: Magnesium Level </= 1.6 Ceftriaxone Sodium 2 gm/ (Dextrose) 50 mls @ 100 mls/hr IV Q24H [facility] [place]; Protocol Last Infusion: 05/13/23 08:04 Dose: Infused Azithromycin 500 mg/ Dextrose 250 mls @ 250 mls/hr IV Q24H [facility]; Protocol Stop: 05/14/23 15:59 Last Infusion: 05/13/23 09:34 Dose: Infused Levothyroxine Sodium (Levothyroxine 50 Mcg Tablet) 50 mcg PO ACB [facility] [place] Last Admin: 05/13/23 08:41 Dose: 50 mcg Lisinopril (Lisinopril 10 Mg Tablet) 10 mg PO QDAY [facility] [place] Last Admin: 05/13/23 08:27 Dose: 10 mg Loperamide HCl (Loperamide 2 Mg Capsule) 2 mg PO PRN PRN PRN Reason: Diarrhea Last Admin: 05/14/23 04:43 Dose: 2 mg Metoprolol Tartrate (Metoprolol Tartrate 5 Mg/5 Ml Vial) 5 mg IV Q2HP PRN PRN Reason: Tachyarrhythmias HR>110 Last Admin: 05/14/23 02:01 Dose: 5 mg Metoprolol Tartrate (Metoprolol Tartrate 25 Mg Tablet) 50 mg PO BID [facility] [place] Last Admin: 05/13/23 20:54 Dose: 50 mg Ondansetron HCl (Ondansetron 4 Mg/2 Ml Vial) 4 mg IV Q4HP PRN PRN Reason: Nausea And Vomiting Last Admin: 05/13/23 23:36 Dose: 4 mg Potassium Chloride (Potassium Chloride 20 Meq Tablet) 40 meq PO UD PRN PRN Reason: Potassium Level of 3-3.5 Last Admin: 05/12/23 19:15 Dose: 40 meq Potassium Chloride (Potassium Chloride 20 Meq Tablet) 40 meq PO UD PRN PRN Reason: Potassium Level < 3 Quetiapine Fumarate (Quetiapine 25 Mg Tablet) 25 mg PO TIDP PRN PRN Reason: Agitation Sodium Chloride (0.9 % Sodium Chloride 10 Ml Syringe) 10 ml IV Q8 [facility] [place] Last Admin: 05/14/23 05:45 Dose: 10 ml Venlafaxine HCl (Venlafaxine 75 Mg Cap.Xl.24h) 75 mg PO QDAY [facility] [place] Last Admin: 05/13/23 10:01 Dose: 75 mg Venlafaxine HCl (Venlafaxine 37.5 Mg Tab.Er.24h) 37.5 mg PO DAILY [facility] [place] Last Admin: 05/13/23 10:02 Dose: 37.5 mg A/P Narrative A/P Narrative: A: *A-fib RVR(new): better but not optimized -ABCD=4 -echo with good EF *Diarrhea: cdiff neg, enteric path neg, fecal wbc pending *Advanced dementia with poor appetite and generalized decline / FTT: *Generalized weakness/deconditioning: *Volume depletion: improving *Hypophosphatemia: *Transaminitis, mild: Monitor *UTI( ): *PNA(LLL): pct mildly improved *Sepsis: 2/2 above -bandemia *Obesity: BMI 37 *EMILY on CPAP: *HTN: *Depression/anxiety: *Hypothyroidism: TSH wnl, continue Synthroid *Goals of care: P: -lopressor PO titrate and prn IV, amio bolus x1, may add po dilt -discuss AC with -monitor tele -man diff -fecal wbc pending -rocephin/azithro pending uc/sc, mrsa screen neg -cont home ACEI, asa, psych meds -pt/OT -Goals of care discussion with -CM for placement -ppx: Lovenox bid code status: DNR Time Spent With Patient Time: Total time spent is greater than 50% in coordination of care (as documented) at patient's floor/unit and/or counseling patient: Subsequent: Total time with patient: 50 - 65 Minutes
[2023-05-14] MEDS: LEVOTHYROXINE 50 MCG TABLET PO SCH (07:43)
[2023-05-14 07:46] LABS: Eosinophils % (Manual) 1 % (0-7)
[2023-05-14] MEDS ORDERED: AMIODARONE 150 MG in DEXTROSE 5% IN WATER 50 ML IV ONE (08:00)
[2023-05-14 08:12] LABS: Band Neutrophils % 28 % (0-10); Basophils % (Manual) 0 % (0-2); Lymphocytes % 22 % (15-49); Metamyelocytes % 3 %; Monocytes % (Manual) 11 % (1-12); Segmented Neutrophils % 35 % (38-78)
[2023-05-14 08:13] LABS: Platelet Estimate NORMAL (Normal); RBC Morphology NORMAL (Normal)
[2023-05-14] MEDS: ASPIRIN 81 MG TAB.CHEW PO SCH (09:58)
[2023-05-14] MEDS: LISINOPRIL 10 MG TABLET PO SCH (09:58)
[2023-05-14] MEDS: METOPROLOL TARTRATE 25 MG TABLET PO SCH ×2 (09:58→21:49)
[2023-05-14] MEDS: ENOXAPARIN 100 MG/ML SYRINGE SQ SCH ×2 (09:58→21:49)
[2023-05-14] MEDS: GABAPENTIN 300 MG CAPSULE PO SCH ×2 (09:58→21:49)
[2023-05-14] MEDS: VENLAFAXINE 37.5 MG TAB.ER.24H PO SCH (09:58)
[2023-05-14] MEDS: VENLAFAXINE 75 MG CAP.XL.24H PO SCH (09:58)
[2023-05-14] MEDS: DILTIAZEM 30 MG TABLET PO SCH ×4 (09:58→21:49)
[2023-05-14] MEDS: cefTRIAXone 2 GM in DEXTROSE 5% IN WATER 50 ML IV SCH (09:58)
[2023-05-14] MEDS: AZITHROMYCIN 500 MG in DEXTROSE 5% IN WATER 250 ML IV SCH (10:40)
--- NOTE | 2023-05-14 10:56 | Discharge Summary ---
Discharge Provider Provider IMPORTANT FOLLOW-UP INFORMATION FOR PCP: Patient information: Note initiated : 05/14/23 at 10:54 am Service Date, if different from initiated Date: [] Patient: Tiffanie Rg 72 y/o F admitted on 05/12/23 for diarrhea, nausea/vomiting. Chief Complaint: [] Date of admission: 05/12/23 13:52 Primary care physician: Nelda Washington Consults: 05/12/23 Consult to Physician [CONS] Stat Comment: Consulting Provider: Jacob Sales Reason For Exam: Physician to Consult COURSE Hospital Course Hospital course: History of present illness: Ms. Rg is a 72 year old F Presents to the ED with increasing weakness. She been to the ED several times was hydrated up with improvement and returned back home. She has advanced dementia is nonverbal and has decreasing appetite. Goals of care and end-of-life discussions were started with who is a resistant to the conversation at first but has since started to possibly accept her situation per discussion in ED with ED provider. She has had diarrhea as well and is found to have tachycardia that was atrial fibrillation today. She was given a diltiazem bolus dose with improvement. BUN/creatinine ratio was elevated but improved from yesterday. 05/13 No overnight events. Diarrhea overnight and pending fecal WBCs. C. difficile negative. suspected bandemia on auto differential, manual differential pending. hypophosphatemia. Mild transaminitis. PCT elevated 05/14 Heart rate overall better but not optimized. We will try amnio bolu, continue on anticoagulation. Bandemia persistent. Pending blood and urine cultures. Phos improved with replacement, will monitor. Transaminitis. A: *A-fib RVR(new): better but not optimized -ABCD=4 -echo with good EF *Diarrhea: cdiff neg, enteric path neg, fecal wbc pending *Advanced dementia with poor appetite and generalized decline / FTT: *Generalized weakness/deconditioning: *Volume depletion: improving *Hypophosphatemia: *Transaminitis, mild: Monitor *UTI( ): *PNA(LLL): pct mildly improved *Sepsis: 2/2 above -bandemia *Obesity: BMI 37 *EMILY on CPAP: *HTN: *Depression/anxiety: *Hypothyroidism: TSH wnl, continue Synthroid *Goals of care: P: -lopressor/dilt -eliquis -Abx 5 day course total Discharge diagnosis: A-fib RVR diarrhea advanced dementia UTI pneumonia Secondary discharge diagnosis: Sepsis volume depletion generalized weakness deconditioning obesity EMILY hypertension depression anxiety hypothyroidism Time Spent with Patient Time attestation: Total time spent providing and/or coordinating discharge services: Time spent: Greater than 30 minutes EXAM Constitutional Vitals: Temp Pulse Resp BP Pulse Ox O2 Del Method O2 Flow Rate 97.0 F 115 H 28 H 118/69 94 Nasal Cannula 1 05/14/23 08:21 05/14/23 08:47 05/14/23 08:47 05/14/23 08:21 05/14/23 08:47 05/14/23 08:21 05/14/23 04:01 Discharge Data Data Completed and Pending Labs on day of discharge: Labs from last 24 hours 05/14/23 05/14/23 05:48 05:48 WBC 7.5 RBC 4.05 Hgb 11.9 Hct 38.1 MCV 94.1 MCH 29.4 MCHC 31.2 RDW 13.6 Plt Count 259 MPV 10.2 Seg Neutrophils % 35 L Band Neutrophils % 28 H Lymphocytes % 22 Monocytes % (Manual) 11 Eosinophils % (Manual) 1 Basophils % (Manual) 0 Metamyelocytes % 3 Platelet Estimate Normal RBC Morphology Normal Macrocytosis TNP Sodium 140 Potassium 3.6 Chloride 110 H Carbon Dioxide 20 L Anion Gap 10.0 BUN 12 Creatinine 0.6 GFR Calculation 89 Glucose 128 H Uric Acid 3.8 Calcium 8.1 L Phosphorus 3.6 Magnesium 1.8 Total Bilirubin 0.2 Direct Bilirubin < 0.2 GGT 48 H AST 62 H ALT 89 H Alkaline Phosphatase 90 Lactate Dehydrogenase 244 H Total Protein 5.2 L Albumin 2.3 L Globulin 2.9 Albumin/Globulin Ratio 0.8 L Triglycerides 100 Discharge Plan Patient/Caregiver Discharge Instructions Activity: increase activity as tolerated Diet: Dysphagia Level 4 Pureed Foods Prescriptions: Continued aspirin [Adult Low Dose Aspirin] 81 mg tablet,delayed release (DR/EC) 81 mg PO QDAY venlafaxine [Effexor XR] 75 mg capsule,extended release 24hr 75 mg PO QDAY Qty: 90 4RF venlafaxine 37.5 mg capsule,extended release 24hr 37.5 mg PO QDAY Qty: 90 1RF levothyroxine [Levoxyl] 50 mcg tablet 50 mcg PO QDAY Qty: 30 12RF lisinopril 10 mg tablet 10 mg PO QDAY Qty: 90 3RF acetaminophen 500 mg tablet 500 mg PO Q6H PRN (Reason: Pain) gabapentin 300 mg capsule 300 mg PO BID quetiapine [Seroquel] 25 mg tablet 25 mg PO TID PRN (Reason: Agitation) Rx Instructions: Will take at nite, but can use up to Tid Follow Up Plan Follow up with: Nelda Washington ARNP [Primary Care Provider] - Patient Disposition: Xfer SNF Prognosis: Fair Rehab Potential: Fair I certify that the patient requires SNF services: Yes Overall status at discharge: patient is progressing back to baseline
[2023-05-15] MEDS: 0.9 % SODIUM CHLORIDE 10 ML SYRINGE IV SCH ×3 (05:19→21:15)
[2023-05-15 06:34] LABS: Hematocrit 38.2 % (34.1-44.9); Mean Cell Volume 93.2 fL (80.0-100.0); Mean Corpuscular HGB Conc 31.4 g/dL (31.0-36.0); Mean Platelet Volume 10.1 fL (8.8-12.5); Platelet Count 241 K/mcL (140-440); Red Cell Distribution Width 13.8 % (11.5-14.5); WBC 11.6 K/mcL (4.5-11.0)
[2023-05-15 07:06] LABS: ALT/SGPT 65 U/L (<40); AST/SGOT 29 U/L (<32); Albumin 2.3 gm/dL (3.2-5.2); Albumin/Globulin Ratio 0.8 (1.0-2.3); Alkaline Phosphatase 92 U/L (39-117); Bilirubin,Direct < 0.2 mg/dL (0-0.3); Bilirubin,Total 0.2 mg/dL (0.1-1.0); Blood Urea Nitrogen 16 mg/dL (8-23); Calcium 8.2 mg/dL (8.6-10.4); Carbon Dioxide 21 mmol/L (22-30); Chloride 108 mmol/L (96-108); Globulin 2.9 gm/dL (2.2-3.7); Glomerular Filtration Rate 85; Glucose 127 mg/dL (70-105); Lactate Dehydrogenase 224 U/L (135-225); Phosphorous 3.9 mg/dL (2.5-4.5); Triglycerides 122 mg/dL (<150); Uric Acid 4.3 mg/dL (2.5-8.0)
[2023-05-15 07:23] LABS: Band Neutrophils % 39 % (0-10); Lymphocytes % 24 % (15-49); Monocytes % (Manual) 2 % (1-12); Myelocytes % 2 %; Platelet Estimate NORMAL (Normal); RBC Morphology NORMAL (Normal); Segmented Neutrophils % 33 % (38-78)
[2023-05-15] MEDS: LEVOTHYROXINE 50 MCG TABLET PO SCH (07:35)
[2023-05-15] MEDS: DILTIAZEM 30 MG TABLET PO SCH ×4 (07:35→21:15)
[2023-05-15] MEDS: LOPERAMIDE 2 MG CAPSULE PO PRN ×2 (07:43→19:19)
[2023-05-15] MEDS: GABAPENTIN 300 MG CAPSULE PO SCH ×2 (07:43→21:15)
[2023-05-15] MEDS: LISINOPRIL 10 MG TABLET PO SCH (07:43)
[2023-05-15] MEDS: VENLAFAXINE 37.5 MG TAB.ER.24H PO SCH (07:43)
[2023-05-15] MEDS: VENLAFAXINE 75 MG CAP.XL.24H PO SCH (07:43)
[2023-05-15] MEDS: ASPIRIN 81 MG TAB.CHEW PO SCH (07:43)
--- NOTE | 2023-05-15 07:43 | Internal Med Progress Note ---
SUBJECTIVE Subjective Patient information: Note initiated : 05/15/23 at 7:38 am Service Date, if different from initiated Date: [] Patient: Tiffanie Rg 72 y/o F admitted on 05/12/23 for diarrhea, n ausea/vomiting. Chief Complaint: [] Interval history: History of present illness: Ms. Rg is a 72 year old F Presents to the ED with increasing weakness. She been to the ED several times was hydrated up with improvement and returned back home. She has advanced dementia is nonverbal and has decreasing appetite. Goals of care and end-of-life discussions were started with who is a resistant to the conversation at first but has since started to possibly accept her situation per discussion in ED with ED provider. She has had diarrhea as well and is found to have tachycardia that was atrial fibrillation today. She was given a diltiazem bolus dose with improvement. BUN/creatinine ratio was elevated but improved from yesterday. 05/13 No overnight events. Diarrhea overnight and pending fecal WBCs. C. difficile negative. suspected bandemia on auto differential, manual differential pending. hypophosphatemia. Mild transaminitis. PCT elevated 05/14 Heart rate overall better but not optimized. We will try amnio bolu, continue on anticoagulation. Bandemia persistent. Pending blood and urine cultures. Phos improved with replacement, will monitor. Transaminitis. diarrhea since admission. 05/15 Still having diarrhea. The fecal leukocyte count finally came back which was few to moderate, will add Flagyl for GI coverage for empiric infectious diarrhea, pending further stool cultures. Minimal leukocytosis but bandemia significant. Transaminitis improving. Procalcitonin slowly improving. Heart rate improving on added diltiazem. Review of systems: Unable to obtain given patient's advanced dementia PHYSICAL EXAM General: Alert, Awake, No acute Distress, obese Eyes/N/T: EOMI, no scleral icterus, Head/Neck: neck supple, full ROM, CV: mildly Tacky and irregular, No murmurs, Pulm: Clear b/l, no wheezing/rhonchi/rales, no respiratory distress Abd: soft, nontender, +BS x4 Ext: no clubbing/cyanosis, trace b/l LE edema, nontender Neuro: Alert, non-verbal but follows some commands, moves all extremities, Psychiatric: Skin: warm/dry, normal color Constitutional Vitals: Vital Signs Temp Pulse Resp BP Pulse Ox O2 Del Method O2 Flow Rate 97.1 F 98 H 21 112/70 92 Room Air 1 05/15/23 02:00 05/15/23 06:00 05/15/23 06:00 05/15/23 06:00 05/15/23 06:00 05/15/23 07:18 05/14/23 10:00 Period Temp Pulse Resp BP Sys/Cole Pulse Ox O2 Del Method O2 Flow Rate Last 24 Hr 97.0 F-97.7 F 85-115 18-28 103-132/66-90 90-95 Nasal Cannula- Room Air 1 Intake and Output 05/14/23 05/15/23 05/15/23 19:59 03:59 11:59 Intake Total 160 Balance 160 Weight 103.963 kg Intake & Output: Intake & Output 05/14/23 05/15/23 05/15/23 19:59 03:59 11:59 Intake Total 160 Balance 160 Weight 103.963 kg Intake: Oral 160 Other: Meal Lunch Percent of Meal Consumed 0% Feeding Ability Total Assistance Stool Size Copious Stool Color Brown Stool Consistency Loose OBJ DATA Labs 05/15/23 05:36 05/15/23 05:36 Labs: Abnormal Lab Results 05/15/23 05/15/23 05/15/23 05:44 05:36 05:36 WBC 11.6 H Immature Gran % (Auto) [place] % (Auto) Seg Neutrophils % 33 L Band Neutrophils % 39 H Monocytes % (Manual) Immature Gran # WBC Morphology Dohle Bodies RBC Morphology Polychromasia POC VBG pH POC VBG pCO2 at Temp POC Venous O2 Sat POC Chloride Chloride Carbon Dioxide 21 L POC BUN Glucose 127 H POC Glucose Calcium 8.2 L POC WB Ioniz Calcium Phosphorus GGT 48 H AST ALT 65 H Lactate Dehydrogenase Total Protein 5.2 L Albumin 2.3 L Albumin/Globulin Ratio 0.8 L Procalcitonin 0.30 H Urine Appearance Urine Protein Urine Ketones Urine Occult Blood Ur Leukocyte Esterase Urine RBC Urine WBC Urine Mucus 05/14/23 05/14/23 05/13/23 05:48 05:48 09:19 WBC Immature Gran % (Auto) [place] % (Auto) Seg Neutrophils % 35 L 21 L Band Neutrophils % 28 H 27 H Monocytes % (Manual) 17 H Immature Gran # WBC Morphology Abnormal A Dohle Bodies 1+ A RBC Morphology Abnormal A Polychromasia Few A POC VBG pH POC VBG pCO2 at Temp POC Venous O2 Sat POC Chloride Chloride 110 H Carbon Dioxide 20 L POC BUN Glucose 128 H POC Glucose Calcium 8.1 L POC WB Ioniz Calcium Phosphorus GGT 48 H AST 62 H ALT 89 H Lactate Dehydrogenase 244 H Total Protein 5.2 L Albumin 2.3 L Albumin/Globulin Ratio 0.8 L Procalcitonin Urine Appearance Urine Protein Urine Ketones Urine Occult Blood Ur Leukocyte Esterase Urine RBC Urine WBC Urine Mucus 05/13/23 05/13/23 05/13/23 06:04 05:44 05:44 WBC Immature Gran % (Auto) 1.4 H [place] % (Auto) 15.6 H Seg Neutrophils % Band Neutrophils % Monocytes % (Manual) Immature Gran # 0.08 H WBC Morphology Dohle Bodies RBC Morphology Polychromasia POC VBG pH POC VBG pCO2 at Temp POC Venous O2 Sat POC Chloride Chloride 112 H Carbon Dioxide 19 L POC BUN Glucose 123 H POC Glucose Calcium 8.0 L POC WB Ioniz Calcium Phosphorus 1.6 L GGT AST 84 H ALT 79 H Lactate Dehydrogenase 270 H Total Protein 5.4 L Albumin 2.6 L Albumin/Globulin Ratio 0.9 L Procalcitonin 0.43 H Urine Appearance Urine Protein Urine Ketones Urine Occult Blood Ur Leukocyte Esterase Urine RBC Urine WBC Urine Mucus 05/12/23 05/12/23 05/12/23 16:00 11:09 11:08 WBC Immature Gran % (Auto) [place] % (Auto) Seg Neutrophils % Band Neutrophils % Monocytes % (Manual) Immature Gran # WBC Morphology Dohle Bodies RBC Morphology Polychromasia POC VBG pH POC VBG pCO2 at Temp POC Venous O2 Sat POC Chloride 110 H Chloride Carbon Dioxide POC BUN 23 H Glucose POC Glucose 129 H Calcium POC WB Ioniz Calcium 1.13 L Phosphorus GGT AST ALT Lactate Dehydrogenase Total Protein Albumin Albumin/Globulin Ratio Procalcitonin 0.57 H Urine Appearance Turbid A Urine Protein 100 A Urine Ketones 20 A Urine Occult Blood >=1.0 A Ur Leukocyte Esterase 500 A Urine RBC 43 H Urine WBC > 182 H Urine Mucus Few A 05/12/23 11:06 WBC Immature Gran % (Auto) [place] % (Auto) Seg Neutrophils % Band Neutrophils % Monocytes % (Manual) Immature Gran # WBC Morphology Dohle Bodies RBC Morphology Polychromasia POC VBG pH 7.50 H POC VBG pCO2 at Temp 32.3 L POC Venous O2 Sat 71.0 H POC Chloride Chloride Carbon Dioxide POC BUN Glucose POC Glucose Calcium POC WB Ioniz Calcium Phosphorus GGT AST ALT Lactate Dehydrogenase Total Protein Albumin Albumin/Globulin Ratio Procalcitonin Urine Appearance Urine Protein Urine Ketones Urine Occult Blood Ur Leukocyte Esterase Urine RBC Urine WBC Urine Mucus Meds: Medications Albuterol/Ipratropium (Ipratropium/Albuterol 3 Ml Ampul.Neb) 3 ml NEB Q4HP PRN PRN Reason: Shortness Of Breath Last Admin: 05/13/23 12:34 Dose: 3 ml Aspirin (Aspirin 81 Mg Tab.Chew) 81 mg PO DAILY [facility] Last Admin: 05/14/23 09:58 Dose: 81 mg Diltiazem HCl (Diltiazem 30 Mg Tablet) 30 mg PO ACHS [facility] Last Admin: 05/15/23 07:35 Dose: 30 mg Enoxaparin Sodium (Enoxaparin 100 Mg/Ml Syringe) 100 mg SQ BID [facility] Last Admin: 05/14/23 21:49 Dose: 100 mg Gabapentin (Gabapentin 300 Mg Capsule) 300 mg PO BID [facility] Last Admin: 05/14/23 21:49 Dose: 300 mg Potassium Chloride 40 meq/ (Dextrose) 520 mls @ 130 mls/hr IV UD PRN PRN Reason: Potassium Level < 3 Magnesium Sulfate (Magnesium Sulfate) 2 gm in 50 mls @ 25 mls/hr IV UD PRN PRN Reason: Magnesium Level </= 1.6 Ceftriaxone Sodium 2 gm/ (Dextrose) 50 mls @ 100 mls/hr IV Q24H [facility]; Protocol Last Infusion: 05/14/23 10:40 Dose: Infused Levothyroxine Sodium (Levothyroxine 50 Mcg Tablet) 50 mcg PO ACB [facility] Last Admin: 05/15/23 07:35 Dose: 50 mcg Lisinopril (Lisinopril 10 Mg Tablet) 10 mg PO QDAY [facility] Last Admin: 05/14/23 09:58 Dose: 10 mg Loperamide HCl (Loperamide 2 Mg Capsule) 2 mg PO PRN PRN PRN Reason: Diarrhea Last Admin: 05/14/23 07:43 Dose: 2 mg Metoprolol Tartrate (Metoprolol Tartrate 5 Mg/5 Ml Vial) 5 mg IV Q2HP PRN PRN Reason: Tachyarrhythmias HR>110 Last Admin: 05/14/23 07:43 Dose: 5 mg Metoprolol Tartrate (Metoprolol Tartrate 25 Mg Tablet) 50 mg PO BID [facility] Last Admin: 05/14/23 21:49 Dose: 50 mg Ondansetron HCl (Ondansetron 4 Mg/2 Ml Vial) 4 mg IV Q4HP PRN PRN Reason: Nausea And Vomiting Last Admin: 05/13/23 23:36 Dose: 4 mg Potassium Chloride (Potassium Chloride 20 Meq Tablet) 40 meq PO UD PRN PRN Reason: Potassium Level of 3-3.5 Last Admin: 05/12/23 19:15 Dose: 40 meq Potassium Chloride (Potassium Chloride 20 Meq Tablet) 40 meq PO UD PRN PRN Reason: Potassium Level < 3 Quetiapine Fumarate (Quetiapine 25 Mg Tablet) 25 mg PO TIDP PRN PRN Reason: Agitation Sodium Chloride (0.9 % Sodium Chloride 10 Ml Syringe) 10 ml IV Q8 [facility] Last Admin: 05/15/23 05:19 Dose: 10 ml Venlafaxine HCl (Venlafaxine 75 Mg Cap.Xl.24h) 75 mg PO QDAY [facility] Last Admin: 05/14/23 09:58 Dose: 75 mg Venlafaxine HCl (Venlafaxine 37.5 Mg Tab.Er.24h) 37.5 mg PO DAILY [facility] Last Admin: 05/14/23 09:58 Dose: 37.5 mg A/P Narrative A/P Narrative: A: *A-fib RVR(new): better with addition of diltiazem po -ABCD=4 -echo with good EF *Diarrhea: cdiff neg, fecal wbc few to mod, repeat enteric path, stool cx *Advanced dementia with poor appetite and generalized decline / FTT: *Generalized weakness/deconditioning: *Volume depletion: improving *Hypophosphatemia: improved *Transaminitis, mild: better, monitor *?UTI: no predominant organisms on cx *?PNA(LLL): pct slowly improving *Diarrhea, prior to arrival: with fecal WBC's, ?infective vs inflammatory. c.diff neg *Sepsis: 2/2 above -bandemia worsened, started flagyl for GI coverage given the wbc on stool studies pct slowly improving *Obesity: BMI 37 *EMILY on CPAP: *HTN: *Depression/anxiety: *Hypothyroidism: TSH wnl, continue Synthroid *Goals of care: P: -lopressor/dilt PO titrate and prn IV -discuss AC with -monitor tele -man diff -stool studies -rocephin/azithro, will add flagyl while awaiting futher stool cx's, pending uc/sc, mrsa screen neg -cont home ACEI, asa, psych meds -pt/OT -Goals of care discussion with -CM for placement -ppx: Lovenox bid code status: DNR Time Spent With Patient Time: Total time spent is greater than 50% in coordination of care (as documented) at patient's floor/unit and/or counseling patient: Subsequent: Total time with patient: 50 - 65 Minutes
[2023-05-15] MEDS: METOPROLOL TARTRATE 25 MG TABLET PO SCH ×2 (07:44→21:15)
[2023-05-15] MEDS: ENOXAPARIN 100 MG/ML SYRINGE SQ SCH ×2 (07:44→21:17)
[2023-05-15] MEDS: metroNIDAZOLE 500 MG/100 ML BAG IV SCH ×3 (09:05→21:15)
[2023-05-15] MEDS: cefTRIAXone 2 GM in DEXTROSE 5% IN WATER 50 ML IV SCH (09:06)
[2023-05-15] MEDS: METOPROLOL TARTRATE 5 MG/5 ML VIAL IV PRN ×2 (14:07→19:12)
[2023-05-16] MEDS: metroNIDAZOLE 500 MG/100 ML BAG IV SCH ×3 (05:49→21:46)
[2023-05-16] MEDS: 0.9 % SODIUM CHLORIDE 10 ML SYRINGE IV SCH ×3 (06:00→21:46)
[2023-05-16 06:47] LABS: Hematocrit 36.6 % (34.1-44.9); Hemoglobin 11.3 g/dL (11.2-15.7); Mean Cell Volume 93.8 fL (80.0-100.0); Mean Corpuscular HGB Conc 30.9 g/dL (31.0-36.0); Mean Platelet Volume 10.1 fL (8.8-12.5); Platelet Count 259 K/mcL (140-440); Red Cell Distribution Width 13.9 % (11.5-14.5)
[2023-05-16 07:16] LABS: ALT/SGPT 53 U/L (<40); AST/SGOT 30 U/L (<32); Albumin 2.3 gm/dL (3.2-5.2); Albumin/Globulin Ratio 0.9 (1.0-2.3); Alkaline Phosphatase 98 U/L (39-117); Bilirubin,Direct < 0.2 mg/dL (0-0.3); Bilirubin,Total 0.3 mg/dL (0.1-1.0); Blood Urea Nitrogen 18 mg/dL (8-23); Calcium 7.9 mg/dL (8.6-10.4); Carbon Dioxide 22 mmol/L (22-30); Chloride 107 mmol/L (96-108); Globulin 2.7 gm/dL (2.2-3.7); Glomerular Filtration Rate 85; Glucose 111 mg/dL (70-105); Lactate Dehydrogenase 235 U/L (135-225); Phosphorous 3.3 mg/dL (2.5-4.5); Triglycerides 90 mg/dL (<150); Uric Acid 4.4 mg/dL (2.5-8.0)
--- NOTE | 2023-05-16 07:54 | Internal Med Progress Note ---
SUBJECTIVE Subjective Patient information: Note initiated : 05/16/23 at 7:51 am Service Date, if different from initiated Date: [] Patient: Tiffanie Rg 72 y/o F admitted on 05/12/23 for diarrhea, n ausea/vomiting. Chief Complaint: [] Interval history: History of present illness: Ms. Rg is a 72 year old F Presents to the ED with increasing weakness. She been to the ED several times was hydrated up with improvement and returned back home. She has advanced dementia is nonverbal and has decreasing appetite. Goals of care and end-of-life discussions were started with who is a resistant to the conversation at first but has since started to possibly accept her situation per discussion in ED with ED provider. She has had diarrhea as well and is found to have tachycardia that was atrial fibrillation today. She was given a diltiazem bolus dose with improvement. BUN/creatinine ratio was elevated but improved from yesterday. 05/13 No overnight events. Diarrhea overnight and pending fecal WBCs. C. difficile negative. suspected bandemia on auto differential, manual differential pending. hypophosphatemia. Mild transaminitis. PCT elevated 05/14 Heart rate overall better but not optimized. We will try amnio bolu, continue on anticoagulation. Bandemia persistent. Pending blood and urine cultures. Phos improved with replacement, will monitor. Transaminitis. diarrhea since admission. 05/15 Still having diarrhea. The fecal leukocyte count finally came back which was few to moderate, will add Flagyl for GI coverage for empiric infectious diarrhea, pending further stool cultures. Minimal leukocytosis but bandemia significant. Transaminitis improving. Procalcitonin slowly improving. Heart rate improving on added diltiazem. 05/16 Patient converted to normal sinus overnight. Continue to monitor. Bandemia still significant but show improvement today. Stool studies unremarkable so far other than the fecal WBCs. Review of systems: Unable to obtain given patient's advanced dementia PHYSICAL EXAM General: Alert, Awake, No acute Distress, obese Eyes/N/T: EOMI, no scleral icterus, Head/Neck: neck supple, full ROM, CV: RRR, No murmurs, Pulm: Clear b/l, no wheezing/rhonchi/rales, no respiratory distress Abd: soft, nontender, +BS x4 Ext: no clubbing/cyanosis, mild b/l LE edema, nontender Neuro: Alert, non-verbal but follows some commands, moves all extremities, Psychiatric: Skin: warm/dry, normal color Constitutional Vitals: Vital Signs Temp Pulse Resp BP Pulse Ox O2 Del Method O2 Flow Rate 97.3 F 76 20 96/61 93 Room Air 1 05/16/23 00:00 05/16/23 04:00 05/16/23 04:00 05/16/23 04:00 05/16/23 04:00 05/16/23 04:00 05/14/23 10:00 Period Temp Pulse Resp BP Sys/Cole Pulse Ox O2 Del Method O2 Flow Rate Last 24 Hr 97.3 F-98.1 F 57-114 19-29 91-123/61-92 90-95 Room Air-Room Air Intake and Output 05/15/23 05/16/23 05/16/23 19:59 03:59 11:59 Intake Total 630 100 200 Output Total 2 Balance 628 100 200 Weight 105.687 kg Intake & Output: Intake & Output 05/15/23 05/16/23 05/16/23 19:59 03:59 11:59 Intake Total 630 100 200 Output Total 2 Balance 628 100 200 Weight 105.687 kg Intake: IV 150 100 100 Rocephin 2 gm In Dextrose 5% in 50 Water 50 ml @ 100 mls/hr IV Q24H [facility] Rx#:[id number] Oral 100 GI Tube Flush 480 Output: # of times incontinent of urine 2 Other: Meal Dinner Percent of Meal Consumed 5 Stool Size Large Large Large Stool Color Brown Brown Brown Yellow Stool Consistency Loose Liquid Liquid Loose Loose # Bowel Movements 1 4 # of times incontinent of 1 4 Bowels OBJ DATA Labs 05/16/23 05:35 05/16/23 05:35 Labs: Abnormal Lab Results 05/16/23 05/16/23 05/16/23 05:35 05:35 05:35 WBC MCHC 30.9 L Seg Neutrophils % Band Neutrophils % Monocytes % (Manual) WBC Morphology Dohle Bodies RBC Morphology Polychromasia Chloride Carbon Dioxide Glucose 111 H Calcium 7.9 L GGT 49 H AST ALT 53 H Lactate Dehydrogenase 235 H Total Protein 5.0 L Albumin 2.3 L Albumin/Globulin Ratio 0.9 L Procalcitonin 0.24 H 05/15/23 05/15/23 05/15/23 05:44 05:36 05:36 WBC 11.6 H MCHC Seg Neutrophils % 33 L Band Neutrophils % 39 H Monocytes % (Manual) WBC Morphology Dohle Bodies RBC Morphology Polychromasia Chloride Carbon Dioxide 21 L Glucose 127 H Calcium 8.2 L GGT 48 H AST ALT 65 H Lactate Dehydrogenase Total Protein 5.2 L Albumin 2.3 L Albumin/Globulin Ratio 0.8 L Procalcitonin 0.30 H 05/14/23 05/14/23 05/13/23 05:48 05:48 09:19 WBC MCHC Seg Neutrophils % 35 L 21 L Band Neutrophils % 28 H 27 H Monocytes % (Manual) 17 H WBC Morphology Abnormal A Dohle Bodies 1+ A RBC Morphology Abnormal A Polychromasia Few A Chloride 110 H Carbon Dioxide 20 L Glucose 128 H Calcium 8.1 L GGT 48 H AST 62 H ALT 89 H Lactate Dehydrogenase 244 H Total Protein 5.2 L Albumin 2.3 L Albumin/Globulin Ratio 0.8 L Procalcitonin Meds: Medications Albuterol/Ipratropium (Ipratropium/Albuterol 3 Ml Ampul.Neb) 3 ml NEB Q4HP PRN PRN Reason: Shortness Of Breath Last Admin: 05/13/23 12:34 Dose: 3 ml Aspirin (Aspirin 81 Mg Tab.Chew) 81 mg PO DAILY [facility] Last Admin: 05/15/23 07:43 Dose: 81 mg Diltiazem HCl (Diltiazem 30 Mg Tablet) 30 mg PO ACHS [facility] Last Admin: 05/15/23 21:15 Dose: 30 mg Enoxaparin Sodium (Enoxaparin 100 Mg/Ml Syringe) 100 mg SQ BID [facility] Last Admin: 05/15/23 21:17 Dose: 100 mg Gabapentin (Gabapentin 300 Mg Capsule) 300 mg PO BID [facility] Last Admin: 05/15/23 21:15 Dose: 300 mg Potassium Chloride 40 meq/ (Dextrose) 520 mls @ 130 mls/hr IV UD PRN PRN Reason: Potassium Level < 3 Magnesium Sulfate (Magnesium Sulfate) 2 gm in 50 mls @ 25 mls/hr IV UD PRN PRN Reason: Magnesium Level </= 1.6 Ceftriaxone Sodium 2 gm/ (Dextrose) 50 mls @ 100 mls/hr IV Q24H [facility]; Protocol Last Infusion: 05/15/23 19:10 Dose: Infused Metronidazole (Flagyl) 500 mg in 100 mls @ 100 mls/hr IV Q8H [facility]; Protocol Last Infusion: 05/16/23 06:49 Dose: Infused Levothyroxine Sodium (Levothyroxine 50 Mcg Tablet) 50 mcg PO ACB [facility] Last Admin: 05/15/23 07:35 Dose: 50 mcg Lisinopril (Lisinopril 10 Mg Tablet) 10 mg PO QDAY [facility] Last Admin: 05/15/23 07:43 Dose: 10 mg Loperamide HCl (Loperamide 2 Mg Capsule) 2 mg PO PRN PRN PRN Reason: Diarrhea Last Admin: 05/15/23 19:19 Dose: 2 mg Metoprolol Tartrate (Metoprolol Tartrate 5 Mg/5 Ml Vial) 5 mg IV Q2HP PRN PRN Reason: Tachyarrhythmias HR>110 Last Admin: 05/15/23 19:12 Dose: 5 mg Metoprolol Tartrate (Metoprolol Tartrate 25 Mg Tablet) 50 mg PO BID [facility] Last Admin: 05/15/23 21:15 Dose: 50 mg Ondansetron HCl (Ondansetron 4 Mg/2 Ml Vial) 4 mg IV Q4HP PRN PRN Reason: Nausea And Vomiting Last Admin: 05/13/23 23:36 Dose: 4 mg Potassium Chloride (Potassium Chloride 20 Meq Tablet) 40 meq PO UD PRN PRN Reason: Potassium Level of 3-3.5 Last Admin: 05/12/23 19:15 Dose: 40 meq Potassium Chloride (Potassium Chloride 20 Meq Tablet) 40 meq PO UD PRN PRN Reason: Potassium Level < 3 Quetiapine Fumarate (Quetiapine 25 Mg Tablet) 25 mg PO TIDP PRN PRN Reason: Agitation Sodium Chloride (0.9 % Sodium Chloride 10 Ml Syringe) 10 ml IV Q8 [facility] Last Admin: 05/16/23 06:00 Dose: 10 ml Venlafaxine HCl (Venlafaxine 75 Mg Cap.Xl.24h) 75 mg PO QDAY [facility] Last Admin: 05/15/23 07:43 Dose: 75 mg Venlafaxine HCl (Venlafaxine 37.5 Mg Tab.Er.24h) 37.5 mg PO DAILY [facility] Last Admin: 05/15/23 07:43 Dose: 37.5 mg A/P Narrative A/P Narrative: A: *A-fib RVR(new): better with addition of diltiazem po -ABCD=4 -echo with good EF *Diarrhea: cdiff neg, fecal wbc few to mod, repeat enteric path neg, stool cx *Advanced dementia with poor appetite and generalized decline / FTT: *Generalized weakness/deconditioning: *Volume depletion: improving *Hypophosphatemia: improved *Transaminitis, mild: better, monitor *?UTI: no predominant organisms on cx *PNA(LLL): pct slowly improving *Diarrhea, prior to arrival: with fecal WBC's, ?infective vs inflammatory. c.diff neg *Sepsis: 2/2 above -bandemia starting to improve, started flagyl for GI coverage given the wbc on stool studies -pct slowly improving - *Obesity: BMI 37 *EMILY on CPAP: *HTN: *Depression/anxiety: *Hypothyroidism: TSH wnl, continue Synthroid *Goals of care: P: -lopressor/dilt PO titrate and prn IV, monitor bp -monitor tele -man diff -stool studies -rocephin/azithro, added flagyl for GI coverage, stool cx's, pending uc/sc, mrsa screen neg -hold home ACEI for soft bp, asa, psych meds -pt/OT -Goals of care discussion with -CM for placement -ppx: Lovenox bid code status: DNR Time Spent With Patient Time: Total time spent is greater than 50% in coordination of care (as documented) at patient's floor/unit and/or counseling patient: Subsequent: Total time with patient: 50 - 65 Minutes
[2023-05-16] MEDS: GABAPENTIN 300 MG CAPSULE PO SCH ×2 (07:55→21:45)
[2023-05-16] MEDS: METOPROLOL TARTRATE 25 MG TABLET PO SCH ×2 (07:55→21:45)
[2023-05-16] MEDS: VENLAFAXINE 75 MG CAP.XL.24H PO SCH (07:55)
[2023-05-16] MEDS: VENLAFAXINE 37.5 MG TAB.ER.24H PO SCH (07:55)
[2023-05-16] MEDS: LEVOTHYROXINE 50 MCG TABLET PO SCH (07:55)
[2023-05-16] MEDS: LOPERAMIDE 2 MG CAPSULE PO PRN ×3 (07:56→18:23)
[2023-05-16] MEDS: ASPIRIN 81 MG TAB.CHEW PO SCH (07:56)
[2023-05-16] MEDS: DILTIAZEM 30 MG TABLET PO SCH ×4 (07:56→21:46)
[2023-05-16] MEDS: ENOXAPARIN 100 MG/ML SYRINGE SQ SCH ×2 (07:56→21:45)
[2023-05-16 08:33] LABS: Band Neutrophils % 22 % (0-10); Lymphocytes % 16 % (15-49); Monocytes % (Manual) 4 % (1-12); Myelocytes % 3 %; Platelet Estimate NORMAL (Normal); RBC Morphology NORMAL (Normal); Reactive Lymphocytes 6 % (0-2); Segmented Neutrophils % 49 % (38-78)
[2023-05-16] MEDS: cefTRIAXone 2 GM in DEXTROSE 5% IN WATER 50 ML IV SCH (10:53)
[2023-05-17] MEDS: metroNIDAZOLE 500 MG/100 ML BAG IV SCH ×3 (05:35→21:31)
[2023-05-17] MEDS: 0.9 % SODIUM CHLORIDE 10 ML SYRINGE IV SCH ×3 (05:36→20:31)
[2023-05-17 06:28] LABS: Hemoglobin 10.6 g/dL (11.2-15.7); Mean Cell Volume 93.4 fL (80.0-100.0); Mean Corpuscular HGB Conc 31.2 g/dL (31.0-36.0); Platelet Count 245 K/mcL (140-440); RBC 3.64 M/mcL (3.59-5.38); Red Cell Distribution Width 13.9 % (11.5-14.5)
[2023-05-17 06:53] LABS: ALT/SGPT 39 U/L (<40); AST/SGOT 21 U/L (<32); Albumin/Globulin Ratio 0.7 (1.0-2.3); Alkaline Phosphatase 78 U/L (39-117); Bilirubin,Direct < 0.2 mg/dL (0-0.3); Bilirubin,Total 0.2 mg/dL (0.1-1.0); Blood Urea Nitrogen 17 mg/dL (8-23); Calcium 7.6 mg/dL (8.6-10.4); Carbon Dioxide 23 mmol/L (22-30); Chloride 106 mmol/L (96-108); Globulin 2.8 gm/dL (2.2-3.7); Glomerular Filtration Rate 89; Glucose 98 mg/dL (70-105); Lactate Dehydrogenase 190 U/L (135-225); Phosphorous 3.2 mg/dL (2.5-4.5); Triglycerides 63 mg/dL (<150); Uric Acid 4.7 mg/dL (2.5-8.0)
[2023-05-17 06:58] LABS: Band Neutrophils % 25 % (0-10); Eosinophils % (Manual) 1 % (0-7); Lymphocytes % 36 % (15-49); Monocytes % (Manual) 5 % (1-12); Platelet Estimate NORMAL (Normal); RBC Morphology NORMAL (Normal); Segmented Neutrophils % 33 % (38-78)
[2023-05-17] MEDS: DILTIAZEM 30 MG TABLET PO SCH (06:58)
[2023-05-17] MEDS: LEVOTHYROXINE 50 MCG TABLET PO SCH (06:58)
--- NOTE | 2023-05-17 07:32 | Internal Med Progress Note ---
SUBJECTIVE Subjective Patient information: Note initiated : 05/17/23 at 7:27 am Service Date, if different from initiated Date: [] Patient: Tiffanie Rg a 72 y/o F admitted on 05/12/23 for diarrhea, n ausea/vomiting. Chief Complaint: [] Interval history: History of present illness: Ms. Rg is a 72 year old F Presents to the ED with increasing weakness. She been to the ED several times was hydrated up with improvement and returned back home. She has advanced dementia is nonverbal and has decreasing appetite. Goals of care and end-of-life discussions were started with who is a resistant to the conversation at first but has since started to possibly accept her situation per discussion in ED with ED provider. She has had diarrhea as well and is found to have tachycardia that was atrial fibrillation today. She was given a diltiazem bolus dose with improvement. BUN/creatinine ratio was elevated but improved from yesterday. 05/13 No overnight events. Diarrhea overnight and pending fecal WBCs. C. difficile negative. suspected bandemia on auto differential, manual differential pending. hypophosphatemia. Mild transaminitis. PCT elevated 05/14 Heart rate overall better but not optimized. We will try amnio bolu, continue on anticoagulation. Bandemia persistent. Pending blood and urine cultures. Phos improved with replacement, will monitor. Transaminitis. diarrhea since admission. 05/15 Still having diarrhea. The fecal leukocyte count finally came back which was few to moderate, will add Flagyl for GI coverage for empiric infectious diarrhea, pending further stool cultures. Minimal leukocytosis but bandemia significant. Transaminitis improving. Procalcitonin slowly improving. Heart rate improving on added diltiazem. 05/16 Patient converted to normal sinus overnight. Continue to monitor. Bandemia still significant but show improvement today. Stool studies unremarkable so far other than the fecal WBCs. 05/17 No overnight event or new complaints. We will trial her off of the p.o. diltiazem and just keep the p.o. Lopressor and monitor her heart rate as she has been doing well since she converted but has had some soft blood pressures. She is having persistent diarrhea still. Bandemia persistent but patient is afebrile and does not appear toxic, We will obtain a peripheral smear. Trans aminitis improved. Review of systems: Unable to obtain given patient's advanced dementia PHYSICAL EXAM General: Alert, Awake, No acute Distress, obese Eyes/N/T: EOMI, no scleral icterus, Head/Neck: neck supple, full ROM, CV: RRR, No murmurs, Pulm: Clear b/l, no wheezing/rhonchi/rales, no respiratory distress Abd: soft, nontender, +BS x4 Ext: no clubbing/cyanosis, mild b/l LE edema, nontender Neuro: Alert, non-verbal but follows some commands, moves all extremities, Psychiatric: Skin: warm/dry, normal color Constitutional Vitals: Vital Signs Temp Pulse Resp BP Pulse Ox O2 Del Method O2 Flow Rate 97.3 F 69 19 112/63 94 Room Air 1 05/17/23 04:01 05/17/23 04:01 05/17/23 04:01 05/17/23 04:01 05/17/23 04:01 05/17/23 04:01 05/14/23 10:00 Period Temp Pulse Resp BP Sys/Cole Pulse Ox O2 Del Method O2 Flow Rate Last 24 Hr 97.0 F-98.5 F 68-80 19-26 93-117/56-70 92-96 Room Air-Room Air Intake and Output 05/16/23 05/17/23 05/17/23 19:59 03:59 11:59 Intake Total 100 100 200 Output Total 2 1 Balance 98 99 200 Weight 105.778 kg Intake & Output: Intake & Output 05/16/23 05/17/23 05/17/23 19:59 03:59 11:59 Intake Total 100 100 200 Output Total 2 1 Balance 98 99 200 Weight 105.778 kg Intake: IV 100 100 100 Oral 100 Output: Void Amount 1 # of times incontinent of urine 1 1 Other: Meal Dinner Percent of Meal Consumed 25% Feeding Ability Total Assistance Stool Size Moderate Small Stool Color Brown Brown Yellow Yellow Stool Consistency Liquid Watery Loose Loose # Voids 1 1 # Bowel Movements 1 # of times incontinent of 1 Bowels OBJ DATA Labs 05/17/23 05:52 05/17/23 05:52 Labs: Abnormal Lab Results 05/17/23 05/17/23 05/16/23 05:52 05:52 05:35 WBC Hgb 10.6 L Hct 34.0 L MCHC Seg Neutrophils % 33 L Band Neutrophils % 25 H Reactive Lymphocytes Carbon Dioxide Anion Gap 7.0 L Glucose Calcium 7.6 L GGT 45 H ALT Lactate Dehydrogenase Total Protein 4.8 L Albumin 2.0 L Albumin/Globulin Ratio 0.7 L Procalcitonin 0.24 H 05/16/23 05/16/23 05/15/23 05:35 05:35 05:44 WBC Hgb Hct MCHC 30.9 L Seg Neutrophils % Band Neutrophils % 22 H Reactive Lymphocytes 6 H Carbon Dioxide Anion Gap Glucose 111 H Calcium 7.9 L GGT 49 H ALT 53 H Lactate Dehydrogenase 235 H Total Protein 5.0 L Albumin 2.3 L Albumin/Globulin Ratio 0.9 L Procalcitonin 0.30 H 05/15/23 05/15/23 05/14/23 05:36 05:36 05:48 WBC 11.6 H Hgb Hct MCHC Seg Neutrophils % 33 L 35 L Band Neutrophils % 39 H 28 H Reactive Lymphocytes Carbon Dioxide 21 L Anion Gap Glucose 127 H Calcium 8.2 L GGT 48 H ALT 65 H Lactate Dehydrogenase Total Protein 5.2 L Albumin 2.3 L Albumin/Globulin Ratio 0.8 L Procalcitonin Meds: Medications Albuterol/Ipratropium (Ipratropium/Albuterol 3 Ml Ampul.Neb) 3 ml NEB Q4HP PRN PRN Reason: Shortness Of Breath Last Admin: 05/13/23 12:34 Dose: 3 ml Aspirin (Aspirin 81 Mg Tab.Chew) 81 mg PO DAILY [facility] Last Admin: 05/16/23 07:56 Dose: 81 mg Diltiazem HCl (Diltiazem 30 Mg Tablet) 30 mg PO ACHS [facility] Last Admin: 05/17/23 06:58 Dose: 30 mg Enoxaparin Sodium (Enoxaparin 100 Mg/Ml Syringe) 100 mg SQ BID [facility] Last Admin: 05/16/23 21:45 Dose: 100 mg Gabapentin (Gabapentin 300 Mg Capsule) 300 mg PO BID [facility] Last Admin: 05/16/23 21:45 Dose: 300 mg Potassium Chloride 40 meq/ (Dextrose) 520 mls @ 130 mls/hr IV UD PRN PRN Reason: Potassium Level < 3 Magnesium Sulfate (Magnesium Sulfate) 2 gm in 50 mls @ 25 mls/hr IV UD PRN PRN Reason: Magnesium Level </= 1.6 Ceftriaxone Sodium 2 gm/ (Dextrose) 50 mls @ 100 mls/hr IV Q24H [facility]; Protocol Last Infusion: 05/16/23 11:23 Dose: Infused Metronidazole (Flagyl) 500 mg in 100 mls @ 100 mls/hr IV Q8H [facility]; Protocol Last Infusion: 05/17/23 06:41 Dose: Infused Levothyroxine Sodium (Levothyroxine 50 Mcg Tablet) 50 mcg PO ACB [facility] Last Admin: 05/17/23 06:58 Dose: 50 mcg Loperamide HCl (Loperamide 2 Mg Capsule) 2 mg PO PRN PRN PRN Reason: Diarrhea Last Admin: 05/16/23 18:23 Dose: 2 mg Metoprolol Tartrate (Metoprolol Tartrate 5 Mg/5 Ml Vial) 5 mg IV Q2HP PRN PRN Reason: Tachyarrhythmias HR>110 Last Admin: 05/15/23 19:12 Dose: 5 mg Metoprolol Tartrate (Metoprolol Tartrate 25 Mg Tablet) 50 mg PO BID [facility] Last Admin: 05/16/23 21:45 Dose: 50 mg Ondansetron HCl (Ondansetron 4 Mg/2 Ml Vial) 4 mg IV Q4HP PRN PRN Reason: Nausea And Vomiting Last Admin: 05/13/23 23:36 Dose: 4 mg Potassium Chloride (Potassium Chloride 20 Meq Tablet) 40 meq PO UD PRN PRN Reason: Potassium Level of 3-3.5 Last Admin: 05/12/23 19:15 Dose: 40 meq Potassium Chloride (Potassium Chloride 20 Meq Tablet) 40 meq PO UD PRN PRN Reason: Potassium Level < 3 Quetiapine Fumarate (Quetiapine 25 Mg Tablet) 25 mg PO TIDP PRN PRN Reason: Agitation Sodium Chloride (0.9 % Sodium Chloride 10 Ml Syringe) 10 ml IV Q8 [facility] Last Admin: 05/17/23 05:36 Dose: 10 ml Venlafaxine HCl (Venlafaxine 75 Mg Cap.Xl.24h) 75 mg PO QDAY [facility] Last Admin: 05/16/23 07:55 Dose: 75 mg Venlafaxine HCl (Venlafaxine 37.5 Mg Tab.Er.24h) 37.5 mg PO DAILY [facility] Last Admin: 05/16/23 07:55 Dose: 37.5 mg A/P Narrative A/P Narrative: A: *A-fib RVR(new): better with addition of diltiazem po -ABCD=4 -echo with good EF -converted to NSR *Diarrhea: cdiff neg, fecal wbc few to mod, repeat enteric path neg, stool cx *Advanced dementia with poor appetite and generalized decline / FTT: *Generalized weakness/deconditioning: *Volume depletion: improving *Hypophosphatemia: improved *Transaminitis, mild: better, monitor *?UTI: no predominant organisms on cx *PNA(LLL): pct slowly improving *Diarrhea, prior to arrival: with fecal WBC's, ?infective vs inflammatory. c.diff neg *Sepsis: 2/2 above -improving *Obesity: BMI 37 *EMILY on CPAP: *HTN: *Depression/anxiety: *Hypothyroidism: TSH wnl, continue Synthroid *Goals of care: P: -cont lopressor, trial off po dilt -monitor tele -peripheral smear for persistent bandemia -stool studies -rocephin/azithro, added flagyl for GI coverage, stool cx's, pending uc/sc, mrsa screen neg -hold home ACEI for soft bp, asa, psych meds -pt/OT -Goals of care discussion with -CM for placement -f/u with GI for diarrhea if it persists -ppx: Lovenox bid code status: DNR Time Spent With Patient Time: Total time spent is greater than 50% in coordination of care (as documented) at patient's floor/unit and/or counseling patient: Subsequent: Total time with patient: 35 - 49 minutes
[2023-05-17] MEDS ORDERED: cefTRIAXone 2 GM VIAL ONE (08:33)
[2023-05-17] MEDS: METOPROLOL TARTRATE 25 MG TABLET PO SCH ×2 (09:02→20:30)
[2023-05-17] MEDS: VENLAFAXINE 37.5 MG TAB.ER.24H PO SCH (09:02)
[2023-05-17] MEDS: VENLAFAXINE 75 MG CAP.XL.24H PO SCH (09:02)
[2023-05-17] MEDS: GABAPENTIN 300 MG CAPSULE PO SCH ×2 (09:02→20:31)
[2023-05-17] MEDS: ENOXAPARIN 100 MG/ML SYRINGE SQ SCH ×2 (09:02→20:31)
[2023-05-17] MEDS: ASPIRIN 81 MG TAB.CHEW PO SCH (09:02)
[2023-05-17] MEDS: cefTRIAXone 2 GM in DEXTROSE 5% IN WATER 50 ML IV SCH (09:04)
[2023-05-18] MEDS: 0.9 % SODIUM CHLORIDE 10 ML SYRINGE IV SCH (05:21)
[2023-05-18] MEDS: metroNIDAZOLE 500 MG/100 ML BAG IV SCH (05:21)
[2023-05-18 06:40] LABS: Hematocrit 34.8 % (34.1-44.9); Hemoglobin 10.8 g/dL (11.2-15.7); Mean Cell Volume 93.8 fL (80.0-100.0); Mean Platelet Volume 9.8 fL (8.8-12.5); Platelet Count 258 K/mcL (140-440); RBC 3.71 M/mcL (3.59-5.38); Red Cell Distribution Width 13.9 % (11.5-14.5); WBC 6.8 K/mcL (4.5-11.0)
[2023-05-18 07:13] LABS: Blood Urea Nitrogen 14 mg/dL (8-23); Calcium 7.9 mg/dL (8.6-10.4); Carbon Dioxide 25 mmol/L (22-30); Chloride 106 mmol/L (96-108); Glomerular Filtration Rate 89; Glucose 97 mg/dL (70-105)
[2023-05-18 08:23] LABS: Band Neutrophils % 4 % (0-10); Eosinophils % (Manual) 2 % (0-7); Hypochromasia OCC (None Seen); Lymphocytes % 35 % (15-49); Monocytes % (Manual) 10 % (1-12); Platelet Estimate NORMAL (Normal); RBC Morphology ABNORMAL (Normal); Segmented Neutrophils % 49 % (38-78)
--- NOTE | 2023-05-18 08:31 | Internal Med Progress Note ---
SUBJECTIVE Subjective Patient information: Note initiated : 05/18/23 at 8:26 am Service Date, if different from initiated Date: [] Patient: Tiffanie Rg 72 y/o F admitted on 05/12/23 for diarrhea, n ausea/vomiting. Chief Complaint: [] Additional PMFSH (Level 3 Only): Ms. Rg is a 72 year old female who presented to the ED with increasing weaknes s. She been to the ED several times was hydrated up with improvement and returned back home. She has advanced dementia is nonverbal and has decreasing appetite. Goals of care and end-of-life discussions were started with who is a resistant to the conversation at first but has since started to possibly accept her situation per discussion in ED with ED provider. She has had diarrhea as well and is found to have tachycardia that was atrial fibrillation today. She was given a diltiazem bolus dose with improvement. BUN/creatinine ratio was elevated but improved from yesterday. 05/13 No overnight events. Diarrhea overnight and pending fecal WBCs. C. difficile negative. suspected bandemia on auto differential, manual differential pending. hypophosphatemia. Mild transaminitis. PCT elevated 05/14 Heart rate overall better but not optimized. We will try amnio bolu, continue o n anticoagulation. Bandemia persistent. Pending blood and urine cultures. Phos improved with replacement, will monitor. Transaminitis. diarrhea since admission. 05/15 Still having diarrhea. The fecal leukocyte count finally came back which was few to moderate, will add Flagyl for GI coverage for empiric infectious diarrhea, pending further stool cultures. Minimal leukocytosis but bandemia significant. Transaminitis improving. Procalcitonin slowly improving. Heart rate improving on added diltiazem. 05/16 Patient converted to normal sinus overnight. Continue to monitor. Bandemia sti ll significant but show improvement today. Stool studies unremarkable so far other than the fecal WBCs. 05/17 No overnight event or new complaints. We will trial her off of the p.o. diltiazem and just keep the p.o. Lopressor and monitor her heart rate as she has been doing well since she converted but has had some soft blood pressures. She is having persistent diarrhea still. Bandemia persistent but patient is afebrile and does not appear toxic, We will obtain a peripheral smear. Transaminitis improved. 05/18 Patient is nonverbal. Her heart rate remained stable overnight nursing staff r eported patient still has diarrhea but it is slowing down. No fever or chills. No leukocytosis. Renal functions and electrolytes stable. Review of systems: 12 point review of system was completed with the nurse. Patient is unable to contribute much given advanced dementia PHYSICAL EXAM General: Alert, Awake, No acute Distress, obese Eyes/N/T: EOMI, no scleral icterus, Head/Neck: neck supple, full ROM, CV: RRR, No murmurs, no JVdD Pulm: Clear b/l, no wheezing/rhonchi/rales, no respiratory distress Abd: soft, nontender, +BS x4 Ext: no clubbing/cyanosis, mild b/l mild LE edema, nontender Neuro: Alert, non-verbal but follows some commands, moves all extremities, Psychiatric: Skin: warm/dry, normal color A: *A-fib RVR, new diagnosis. Spontaneously converted to normal sinus rhythm. Weaned off diltiazem. Rate controlled on metoprolol 50 mg twice daily -2D echo with EF 68%, mild to moderate MR, no diastolic dysfunction no peric ardial effusion -[id number] 2 score is at least 3 however patient has advanced dementia and discussion around anticoagulation will be deferred to PCP *Diarrhea:Improving. Enteric panel negative x2. C. difficile negative. Few to moderate fecal WBC. *Advanced dementia with poor appetite and generalized decline / FTT: Patient is nonverbal at baseline. *Generalized weakness/deconditioning: Continue PT OT *Volume depletion: improving *Hypophosphatemia: improved *Transaminitis, mild: better, monitor *?UTI: no predominant organisms on cx *PNA(LLL): pct slowly improving *Sepsis: 2/2 above -improving *Obesity: BMI 37 *EMILY on CPAP: *HTN: Stable *Depression/anxiety: *Hypothyroidism: TSH wnl, continue Synthroid *Goals of care: DNR P: -cont lopressor, heart rate control of p.o. diltiazem -monitor tele -peripheral smear for persistent bandemia, bandemia resolved -stool studies as above -rocephin/azithro, added flagyl for GI coverage, stool cx's, pending uc/sc, mrsa screen neg -hold home ACEI for soft bp, asa, psych meds -PT/OT -Goals of care discussion with -CM for placement -f/u with GI for diarrhea if it persists -ppx: Lovenox bid code status: DNR Total time > 50 min Constitutional Vitals: Vital Signs Temp Pulse Resp BP Pulse Ox O2 Del Method O2 Flow Rate 98.0 F 77 19 112/63 94 Room Air 0 05/18/23 08:00 05/18/23 08:00 05/18/23 08:00 05/18/23 08:00 05/18/23 08:00 05/18/23 08:00 05/17/23 22:01 Period Temp Pulse Resp BP Sys/Cole Pulse Ox O2 Del Method O2 Flow Rate Last 24 Hr 97.2 F-98.3 F 75-80 17-26 112-139/51-110 93-96 Room Air-Room Air 0 Intake and Output 05/17/23 05/18/23 05/18/23 19:59 03:59 11:59 Intake Total 460 100 250 Output Total 2 1 Balance 458 100 249 Weight 107.365 kg Intake & Output: Intake & Output 05/17/23 05/18/23 05/18/23 19:59 03:59 11:59 Intake Total 460 100 250 Output Total 2 1 Balance 458 100 249 Weight 107.365 kg Intake: IV 100 100 100 Oral 360 150 Output: # of times incontinent of urine 2 1 Other: Percent of Meal Consumed 100% Feeding Ability Assist with Tray Set Up Stool Size Moderate Large Stool Color Yellow Brown Brown Yellow Yellow Stool Consistency Liquid Liquid Liquid Watery Loose Loose # of times incontinent of 1 1 Bowels OBJ DATA Labs 05/18/23 05:20 05/18/23 05:20 Labs: Abnormal Lab Results 05/18/23 05/18/23 05/17/23 05:20 05:20 05:52 Hgb 10.8 L Hct MCHC Seg Neutrophils % Band Neutrophils % Reactive Lymphocytes RBC Morphology Abnormal A Hypochromasia Occ A Anion Gap 7.0 L Glucose Calcium 7.9 L 7.6 L GGT 45 H ALT Lactate Dehydrogenase Total Protein 4.8 L Albumin 2.0 L Albumin/Globulin Ratio 0.7 L Procalcitonin 05/17/23 05/16/23 05/16/23 05:52 05:35 05:35 Hgb 10.6 L Hct 34.0 L MCHC Seg Neutrophils % 33 L Band Neutrophils % 25 H Reactive Lymphocytes RBC Morphology Hypochromasia Anion Gap Glucose 111 H Calcium 7.9 L GGT 49 H ALT 53 H Lactate Dehydrogenase 235 H Total Protein 5.0 L Albumin 2.3 L Albumin/Globulin Ratio 0.9 L Procalcitonin 0.24 H 05/16/23 05:35 Hgb Hct MCHC 30.9 L Seg Neutrophils % Band Neutrophils % 22 H Reactive Lymphocytes 6 H RBC Morphology Hypochromasia Anion Gap Glucose Calcium GGT ALT Lactate Dehydrogenase Total Protein Albumin Albumin/Globulin Ratio Procalcitonin Meds: Medications Albuterol/Ipratropium (Ipratropium/Albuterol 3 Ml Ampul.Neb) 3 ml NEB Q4HP PRN PRN Reason: Shortness Of Breath Last Admin: 05/13/23 12:34 Dose: 3 ml Aspirin (Aspirin 81 Mg Tab.Chew) 81 mg PO DAILY [facility] Last Admin: 05/17/23 09:02 Dose: 81 mg Enoxaparin Sodium (Enoxaparin 100 Mg/Ml Syringe) 100 mg SQ BID [facility] Last Admin: 05/17/23 20:31 Dose: 100 mg Gabapentin (Gabapentin 300 Mg Capsule) 300 mg PO BID [facility] Last Admin: 05/17/23 20:31 Dose: 300 mg Potassium Chloride 40 meq/ (Dextrose) 520 mls @ 130 mls/hr IV UD PRN PRN Reason: Potassium Level < 3 Magnesium Sulfate (Magnesium Sulfate) 2 gm in 50 mls @ 25 mls/hr IV UD PRN PRN Reason: Magnesium Level </= 1.6 Ceftriaxone Sodium 2 gm/ (Dextrose) 50 mls @ 100 mls/hr IV Q24H [facility]; Protocol Last Infusion: 05/17/23 09:58 Dose: Infused Metronidazole (Flagyl) 500 mg in 100 mls @ 100 mls/hr IV Q8H [facility]; Protocol Last Infusion: 05/18/23 06:26 Dose: Infused Levothyroxine Sodium (Levothyroxine 50 Mcg Tablet) 50 mcg PO ACB [facility] Last Admin: 05/17/23 06:58 Dose: 50 mcg Loperamide HCl (Loperamide 2 Mg Capsule) 2 mg PO PRN PRN PRN Reason: Diarrhea Last Admin: 05/16/23 18:23 Dose: 2 mg Metoprolol Tartrate (Metoprolol Tartrate 5 Mg/5 Ml Vial) 5 mg IV Q2HP PRN PRN Reason: Tachyarrhythmias HR>110 Last Admin: 05/15/23 19:12 Dose: 5 mg Metoprolol Tartrate (Metoprolol Tartrate 25 Mg Tablet) 50 mg PO BID [facility] Last Admin: 05/17/23 20:30 Dose: 50 mg Ondansetron HCl (Ondansetron 4 Mg/2 Ml Vial) 4 mg IV Q4HP PRN PRN Reason: Nausea And Vomiting Last Admin: 05/13/23 23:36 Dose: 4 mg Potassium Chloride (Potassium Chloride 20 Meq Tablet) 40 meq PO UD PRN PRN Reason: Potassium Level of 3-3.5 Last Admin: 05/12/23 19:15 Dose: 40 meq Potassium Chloride (Potassium Chloride 20 Meq Tablet) 40 meq PO UD PRN PRN Reason: Potassium Level < 3 Quetiapine Fumarate (Quetiapine 25 Mg Tablet) 25 mg PO TIDP PRN PRN Reason: Agitation Sodium Chloride (0.9 % Sodium Chloride 10 Ml Syringe) 10 ml IV Q8 [facility] Last Admin: 05/18/23 05:21 Dose: 10 ml Venlafaxine HCl (Venlafaxine 75 Mg Cap.Xl.24h) 75 mg PO QDAY [facility] Last Admin: 05/17/23 09:02 Dose: 75 mg Venlafaxine HCl (Venlafaxine 37.5 Mg Tab.Er.24h) 37.5 mg PO DAILY [facility] Last Admin: 05/17/23 09:02 Dose: 37.5 mg A/P Time Spent With Patient Time: Total time spent is greater than 50% in coordination of care (as documented) at patient's floor/unit and/or counseling patient:
[2023-05-18] MEDS: ASPIRIN 81 MG TAB.CHEW PO SCH (08:56)
[2023-05-18] MEDS: VENLAFAXINE 75 MG CAP.XL.24H PO SCH (08:56)
[2023-05-18] MEDS: METOPROLOL TARTRATE 25 MG TABLET PO SCH (08:56)
[2023-05-18] MEDS: LEVOTHYROXINE 50 MCG TABLET PO SCH (08:56)
[2023-05-18] MEDS: GABAPENTIN 300 MG CAPSULE PO SCH (08:56)
[2023-05-18] MEDS: ENOXAPARIN 100 MG/ML SYRINGE SQ SCH (08:56)
[2023-05-18] MEDS: VENLAFAXINE 37.5 MG TAB.ER.24H PO SCH (08:56)
[2023-05-18] MEDS ORDERED: APIXABAN 5 MG TABLET PO SCH (09:00)
[2023-05-18] MEDS: cefTRIAXone 2 GM in DEXTROSE 5% IN WATER 50 ML IV SCH (10:36)
--- NOTE | 2023-05-18 13:17 | Discharge Summary ---
Discharge Provider Provider IMPORTANT FOLLOW-UP INFORMATION FOR PCP: Patient information: Note initiated : 05/18/23 at 1:13 pm Service Date, if different from initiated Date: [] Patient: Tiffanie Rg 72 y/o F admitted on 05/12/23 for diarrhea, nausea/vomiting. Chief Complaint: [] Date of admission: 05/12/23 13:52 Discharge date: 05/18/23 Primary care physician: Nelda Washington Consults: 05/12/23 Consult to Physician [CONS] Stat Comment: Consulting Provider: Jacob Sales Reason For Exam: Physician to Consult COURSE Hospital Course Hospital course: Ms. Rg is a 72 year old female who presented to the ED with increasing weakness. She been to the ED several times was hydrated up with improvement and returned back home. She has advanced dementia is nonverbal and has decreasing appetite. Goals of care and end-of-life discussions were started with who is a resistant to the conversation at first but has since started to possibly accept her situation per discussion in ED with ED provider. She has had diarrhea as well and is found to have tachycardia that was atrial fibrillation today. She was given a diltiazem bolus dose with improvement. BUN/creatinine ratio was elevated but improved from yesterday. 05/13 No overnight events. Diarrhea overnight and pending fecal WBCs. C. difficile negative. suspected bandemia on auto differential, manual differential pending. hypophosphatemia. Mild transaminitis. PCT elevated 05/14 Heart rate overall better but not optimized. We will try amnio bolu, continue on anticoagulation. Bandemia persistent. Pending blood and urine cultures. Phos improved with replacement, will monitor. Transaminitis. diarrhea since admission. 05/15 Still having diarrhea. The fecal leukocyte count finally came back which was few to moderate, will add Flagyl for GI coverage for empiric infectious diarrhea, pending further stool cultures. Minimal leukocytosis but bandemia significant. Transaminitis improving. Procalcitonin slowly improving. Heart rate improving on added diltiazem. 05/16 Patient converted to normal sinus overnight. Continue to monitor. Bandemia still significant but show improvement today. Stool studies unremarkable so far other than the fecal WBCs. 05/17 No overnight event or new complaints. We will trial her off of the p.o. diltiazem and just keep the p.o. Lopressor and monitor her heart rate as she has been doing well since she converted but has had some soft blood pressures. She is having persistent diarrhea still. Bandemia persistent but patient is afebrile and does not appear toxic, We will obtain a peripheral smear. Transaminitis improved. 05/18 Patient is nonverbal. Her heart rate remained stable overnight nursing staff reported patient still has diarrhea but it is slowing down. No fever or chills. No leukocytosis. Renal functions and electrolytes stable. Discharge diagnoses *A-fib RVR, new diagnosis. Spontaneously converted to normal sinus rhythm. Weaned off diltiazem. Rate controlled on metoprolol 50 mg twice daily. [id number]- VASc 2 score is at least warranting anticoagulation. Received Lovenox twice daily and transition to Eliquis upon discharge -2D echo with EF 68%, mild to moderate MR, no diastolic dysfunction no pericardial effusion *Diarrhea:Improving. Enteric panel negative x2. C. difficile negative. Few to moderate fecal WBC. Stool culture negative. *Advanced dementia with poor appetite and generalized decline / FTT: Patient is nonverbal at baseline. *Generalized weakness/deconditioning: Continue PT OT. Discharge to SNF *Volume depletion: improving *Hypophosphatemia: improved *Transaminitis, mild: better, monitor *?UTI: no predominant organisms on cx *PNA(LLL): pct slowly improving *Sepsis: 2/2 above *Obesity: BMI 37 *EMILY on CPAP, stable *HTN: Stable *Depression/anxiety: *Hypothyroidism: TSH wnl, continue Synthroid *Goals of care: DNR PHYSICAL EXAM General: Alert, Awake, No acute Distress, obese Eyes/N/T: EOMI, no scleral icterus, Head/Neck: neck supple, full ROM, CV: RRR, No murmurs, no JVdD Pulm: Clear b/l, no wheezing/rhonchi/rales, no respiratory distress Abd: soft, nontender, +BS x4 Ext: no clubbing/cyanosis, mild b/l mild LE edema, nontender Neuro: Alert, non-verbal but follows some commands, moves all extremities, Psychiatric: Skin: warm/dry, normal color Total time > 50 min Discharge diagnosis: A-fib with RVR. Sepsis secondary to pneumonia, diarrhea, advanced dementia Time Spent with Patient Time attestation: Total time spent providing and/or coordinating discharge services: Time spent: Greater than 30 minutes EXAM Constitutional Vitals: Temp Pulse Resp BP Pulse Ox O2 Del Method O2 Flow Rate 97.0 F 69 24 H 130/74 96 Room Air 0 05/18/23 12:45 05/18/23 12:45 05/18/23 12:45 05/18/23 10:31 05/18/23 12:45 05/18/23 10:31 05/17/23 22:01 Discharge Data Data Completed and Pending Labs on day of discharge: Labs from last 24 hours 05/18/23 05/18/23 05/17/23 05:20 05:20 05:52 WBC 6.8 RBC 3.71 Hgb 10.8 L Hct 34.8 MCV 93.8 MCH 29.1 MCHC 31.0 RDW 13.9 Plt Count 258 MPV 9.8 Seg Neutrophils % 49 Band Neutrophils % 4 Lymphocytes % 35 Monocytes % (Manual) 10 Eosinophils % (Manual) 2 Platelet Estimate Normal RBC Morphology Abnormal A Hypochromasia Occ A Smear Path Review See comment Sodium 139 Potassium 3.8 Chloride 106 Carbon Dioxide 25 Anion Gap 8.0 BUN 14 Creatinine 0.6 GFR Calculation 89 Glucose 97 Calcium 7.9 L Discharge Plan Patient/Caregiver Discharge Instructions Activity: increase activity as tolerated Diet: Dysphagia Level 4 Pureed Foods Prescriptions: New metoprolol tartrate 25 mg Tablet 50 mg PO BID Qty: 60 0RF apixaban 5 mg Tablet 5 mg PO BID Qty: 60 0RF Continued venlafaxine [Effexor XR] 75 mg capsule,extended release 24hr 75 mg PO QDAY Qty: 90 4RF venlafaxine 37.5 mg capsule,extended release 24hr 37.5 mg PO QDAY Qty: 90 1RF levothyroxine [Levoxyl] 50 mcg tablet 50 mcg PO QDAY Qty: 30 12RF lisinopril 10 mg tablet 10 mg PO QDAY Qty: 90 3RF acetaminophen 500 mg tablet 500 mg PO Q6H PRN (Reason: Pain) gabapentin 300 mg capsule 300 mg PO BID quetiapine [Seroquel] 25 mg tablet 25 mg PO TID PRN (Reason: Agitation) Rx Instructions: Will take at nite, but can use up to Tid Discontinued aspirin [Adult Low Dose Aspirin] 81 mg tablet,delayed release (DR/EC) 81 mg PO QDAY Other Ambulatory Orders: OT Discharge Order (Routine) Facility: [facility] - Location: Conversion-Correction Ordered By: Adam Ponce Physical Therapy at Discharge - General (Routine) Facility: [facility] - Location: Conversion-Correction Ordered By: Adam Ponce ST Discharge Order (Routine) Facility: [facility] - Location: Conversion-Correction Ordered By: Adam Ponce Follow Up Plan Follow up with: Nelda Washington ARNP [Primary Care Provider] - Patient Disposition: Xfer SNF Prognosis: Fair Rehab Potential: Fair I certify that the patient requires SNF services: Yes Overall status at discharge: patient is progressing back to baseline Discharge Orders: Discharge Order (Routine); Ordered 05/18/23 Ordered By: Adam Ponce
== END 2023-05-18 14:30 | DRG 871 ==
LOC: ED 10:44 → ICU 13:52
PROVIDERS: ADMIT Internal Medicine; ATTEND Internal Medicine

== ENCOUNTER 2024-12-13 19:31 | Inpatient (IN) ==
[2024-12-13] MEDS ORDERED: IOPAMIDOL 100 ML BOTTLE IV ONE (19:32)
[2024-12-13 21:21] LABS: Basophils # (Auto) 0.01 K/mcL (0.00-0.30); Basophils % (Auto) 0.1 % (0.0-2.0); Eosinophils # (Auto) 0.01 K/mcL (0.00-0.70); Eosinophils % (Auto) 0.1 % (0.0-7.0); Hematocrit 42.2 % (34.1-44.9); Hemoglobin 13.2 g/dL (11.2-15.7); Lymphocytes # (Auto) 2.09 K/mcL (1.50-4.80); Lymphocytes % (Auto) 16.1 % (15.5-49.0); Mean Cell Volume 97.2 fL (80.0-100.0); Mean Corpuscular HGB Conc 31.3 g/dL (31.0-36.0); Monocytes # (Auto) 0.97 K/mcL (0.10-0.90); Monocytes % (Auto) 7.5 % (1.0-12.0); Neutrophils % (Auto) 75.8 % (38.0-78.0); Platelet Count 215 K/mcL (140-440); RBC 4.34 M/mcL (3.59-5.38); Red Cell Distribution Width 13.5 % (11.5-14.5)
[2024-12-13 21:46] LABS: ALT/SGPT 30 U/L (<40); AST/SGOT 59 U/L (<32); Albumin 3.3 gm/dL (3.2-5.2); Albumin/Globulin Ratio 1.2 (1.0-2.3); Alkaline Phosphatase 70 U/L (39-117); Bilirubin,Total 0.7 mg/dL (0.1-1.0); Blood Urea Nitrogen 32 mg/dL (8-23); Carbon Dioxide 21 mmol/L (22-30); Chloride 102 mmol/L (96-108); Globulin 2.7 gm/dL (2.2-3.7); Glomerular Filtration Rate 36; Glucose 147 mg/dL (70-105); Potassium 4.6 mmol/L (3.3-5.1); Sodium 137 mmol/L (133-145)
[2024-12-13] MEDS: 0.9 % SODIUM CHLORIDE 1,000 ML IV SCH (22:11)
[2024-12-13 22:15] LABS: Appearance,Urine Slightly Cloudy (Clear); Bacteria,Urine Many /hpf (0); Bilirubin,Urine Negative (Negative); Color,Urine Yellow; Glucose,Urine (UA) Negative (Negative); Ketones,Urine Negative (Negative); Leukocyte Esterase,Urine Negative /uL (Negative); Nitrate,Urine Negative (Negative); PH,Urine 5.5 (5.0-9.0); Protein,Urine 30 mg/dL (Negative); Specific Gravity,Urine 1.025 (1.000-1.035); Urine Blood Small ery/mcL (Negative); Urine RBC 1 /hpf (0-3); Urine Squamous Epithelial Cell 1 /hpf (0-4); Urine WBC < 1 /hpf (0-4); Urobilinogen,Urine Normal
[2024-12-13] MEDS: ACETAMINOPHEN 1,000 MG/100 ML BAG IV ONE (22:25)
[2024-12-13] MEDS ORDERED: 0.9 % SODIUM CHLORIDE 1,000 ML IV SCH (23:30)
[2024-12-14] MEDS: NOREPINEPHRINE 250 ML IV SCH (00:27)
[2024-12-14] MEDS: 0.9 % SODIUM CHLORIDE 1,000 ML IV ONE ×2 (00:28→01:34)
[2024-12-14] MEDS: PIPERACILLIN SODIUM/TAZOBACTAM 3.375 GM in DEXTROSE 5% IN WATER 50 ML IV ONE (01:00)
[2024-12-14] MEDS: VANCOMYCIN 1,000 MG in 0.9 % SODIUM CHLORIDE 250 ML IV ONE (01:34)
[2024-12-14] MEDS ORDERED: ACETAMINOPHEN 650 MG/65 ML BAG IV PRN (02:18)
[2024-12-14] MEDS: 0.9 % SODIUM CHLORIDE 250 ML IV SCH ×2 (02:50→07:40)
[2024-12-14] MEDS: 0.9 % SODIUM CHLORIDE 1,000 ML IV SCH (03:18)
[2024-12-14] MEDS: metroNIDAZOLE 500 MG/100 ML BAG IV SCH (07:00)
[2024-12-14 07:43] LABS: Basophils # (Auto) 0.02 K/mcL (0.00-0.30); Basophils % (Auto) 0.2 % (0.0-2.0); Eosinophils # (Auto) 0.01 K/mcL (0.00-0.70); Eosinophils % (Auto) 0.1 % (0.0-7.0); Hematocrit 40.4 % (34.1-44.9); Hemoglobin 12.7 g/dL (11.2-15.7); Lymphocytes # (Auto) 2.58 K/mcL (1.50-4.80); Mean Cell Volume 97.1 fL (80.0-100.0); Mean Corpuscular HGB Conc 31.4 g/dL (31.0-36.0); Mean Platelet Volume 10.2 fL (8.8-12.5); Monocytes # (Auto) 0.92 K/mcL (0.10-0.90); Monocytes % (Auto) 7.5 % (1.0-12.0); Platelet Count 233 K/mcL (140-440); RBC 4.16 M/mcL (3.59-5.38); Red Cell Distribution Width 13.6 % (11.5-14.5); WBC 12.3 K/mcL (4.5-11.0)
[2024-12-14 07:49] LABS: ALT/SGPT 31 U/L (<40); AST/SGOT 61 U/L (<32); Alkaline Phosphatase 76 U/L (39-117); Bilirubin,Direct 0.4 mg/dL (<0.3); Bilirubin,Total 0.8 mg/dL (0.1-1.0); Blood Urea Nitrogen 26 mg/dL (8-23); Calcium 8.6 mg/dL (8.6-10.4); Carbon Dioxide 18 mmol/L (22-30); Chloride 106 mmol/L (96-108); Globulin 2.9 gm/dL (2.2-3.7); Glomerular Filtration Rate 44; Glucose 128 mg/dL (70-105); Lactate Dehydrogenase 284 U/L (135-225); Phosphorous 2.5 mg/dL (2.5-4.5); Sodium 139 mmol/L (133-145); Triglycerides 75 mg/dL (<150); Uric Acid 6.1 mg/dL (2.5-8.0)
[2024-12-14] MEDS: ACETAMINOPHEN 1,000 MG/100 ML BAG IV SCH (08:09)
[2024-12-14] MEDS: cefTRIAXone 2 GM in DEXTROSE 5% IN WATER 50 ML IV SCH (09:08)
[2024-12-14] MEDS: NOREPINEPHRINE BITARTRATE 8 MG in 0.9 % SODIUM CHLORIDE 242 ML IV SCH (17:36)
[2024-12-14] MEDS ORDERED: METOPROLOL TARTRATE 5 MG/5 ML VIAL IV PRN (20:55)
[2024-12-14] MEDS: METOPROLOL TARTRATE 50 MG TABLET PO SCH (21:25)
[2024-12-14] MEDS: METOPROLOL TARTRATE 25 MG TABLET ONE (21:28)
[2024-12-15 06:34] LABS: Basophils # (Auto) 0.01 K/mcL (0.00-0.30); Basophils % (Auto) 0.1 % (0.0-2.0); Eosinophils # (Auto) 0.06 K/mcL (0.00-0.70); Eosinophils % (Auto) 0.8 % (0.0-7.0); Hematocrit 32.4 % (34.1-44.9); Hemoglobin 10.6 g/dL (11.2-15.7); Lymphocytes # (Auto) 1.83 K/mcL (1.50-4.80); Lymphocytes % (Auto) 23.6 % (15.5-49.0); Mean Cell Volume 93.4 fL (80.0-100.0); Mean Corpuscular HGB Conc 32.7 g/dL (31.0-36.0); Mean Platelet Volume 10.4 fL (8.8-12.5); Monocytes # (Auto) 0.54 K/mcL (0.10-0.90); Neutrophils % (Auto) 68.4 % (38.0-78.0); Platelet Count 225 K/mcL (140-440); RBC 3.47 M/mcL (3.59-5.38); Red Cell Distribution Width 13.5 % (11.5-14.5); WBC 7.8 K/mcL (4.5-11.0)
[2024-12-15] MEDS: FUROSEMIDE 40 MG/4 ML VIAL IV ONE ×2 (06:49→16:53)
[2024-12-15 06:51] LABS: ALT/SGPT 26 U/L (<40); AST/SGOT 41 U/L (<32); Albumin 2.9 gm/dL (3.2-5.2); Albumin/Globulin Ratio 1.2 (1.0-2.3); Alkaline Phosphatase 100 U/L (39-117); Bilirubin,Direct 0.3 mg/dL (<0.3); Bilirubin,Total 0.4 mg/dL (0.1-1.0); Blood Urea Nitrogen 15 mg/dL (8-23); Calcium 8.3 mg/dL (8.6-10.4); Carbon Dioxide 20 mmol/L (22-30); Chloride 111 mmol/L (96-108); Globulin 2.5 gm/dL (2.2-3.7); Glomerular Filtration Rate 84; Glucose 104 mg/dL (70-105); Lactate Dehydrogenase 325 U/L (135-225); Phosphorous 1.5 mg/dL (2.5-4.5); Potassium 3.4 mmol/L (3.3-5.1); Sodium 142 mmol/L (133-145); Triglycerides 57 mg/dL (<150); Uric Acid 5.1 mg/dL (2.5-8.0)
[2024-12-15] MEDS ORDERED: ACETAMINOPHEN 500 MG TABLET PO PRN (10:30)
[2024-12-15] MEDS: POTASSIUM PHOSPHATE 40 MEQ in DEXTROSE 5% IN WATER 500 ML IV ONE (14:00)
[2024-12-15] MEDS: traMADol 50 MG TABLET PO PRN (16:53)
[2024-12-15] MEDS: GABAPENTIN 300 MG CAPSULE PO SCH (20:35)
[2024-12-15] MEDS: APIXABAN 5 MG TABLET PO SCH (20:35)
[2024-12-15] MEDS: METOPROLOL TARTRATE 25 MG TABLET PO SCH (20:35)
[2024-12-16 06:23] LABS: Basophils # (Auto) 0.01 K/mcL (0.00-0.30); Basophils % (Auto) 0.1 % (0.0-2.0); Eosinophils # (Auto) 0.17 K/mcL (0.00-0.70); Eosinophils % (Auto) 2.5 % (0.0-7.0); Hematocrit 35.2 % (34.1-44.9); Hemoglobin 11.2 g/dL (11.2-15.7); Lymphocytes # (Auto) 2.06 K/mcL (1.50-4.80); Lymphocytes % (Auto) 30.8 % (15.5-49.0); Mean Cell Volume 95.1 fL (80.0-100.0); Mean Corpuscular HGB Conc 31.8 g/dL (31.0-36.0); Mean Platelet Volume 10.3 fL (8.8-12.5); Monocytes # (Auto) 0.51 K/mcL (0.10-0.90); Monocytes % (Auto) 7.6 % (1.0-12.0); Neutrophils % (Auto) 58.7 % (38.0-78.0); Platelet Count 228 K/mcL (140-440); Red Cell Distribution Width 13.5 % (11.5-14.5); WBC 6.7 K/mcL (4.5-11.0)
[2024-12-16 07:02] LABS: ALT/SGPT 23 U/L (<40); AST/SGOT 26 U/L (<32); Albumin 2.8 gm/dL (3.2-5.2); Albumin/Globulin Ratio 1.1 (1.0-2.3); Alkaline Phosphatase 72 U/L (39-117); Bilirubin,Direct < 0.2 mg/dL (0-0.3); Bilirubin,Total 0.3 mg/dL (0.1-1.0); Blood Urea Nitrogen 13 mg/dL (8-23); Calcium 8.3 mg/dL (8.6-10.4); Carbon Dioxide 19 mmol/L (22-30); Chloride 108 mmol/L (96-108); Globulin 2.6 gm/dL (2.2-3.7); Glomerular Filtration Rate 84; Glucose 88 mg/dL (70-105); Lactate Dehydrogenase 256 U/L (135-225); Phosphorous 2.6 mg/dL (2.5-4.5); Potassium 3.3 mmol/L (3.3-5.1); Sodium 139 mmol/L (133-145); Triglycerides 71 mg/dL (<150); Uric Acid 5.3 mg/dL (2.5-8.0)
[2024-12-16] MEDS ORDERED: FUROSEMIDE 40 MG TABLET PO SCH (09:00)
[2024-12-16] MEDS: AMPICILLIN SODIUM 1 GM in 0.9 % SODIUM CHLORIDE 50 ML IV SCH (09:03)
[2024-12-16] MEDS: LEVOTHYROXINE 50 MCG TABLET PO SCH (11:44)
[2024-12-16] MEDS: SODIUM BICARBONATE 650 MG TABLET PO SCH (12:09)
[2024-12-16] MEDS: POTASSIUM CHLORIDE 20 MEQ PACKET PO SCH (12:09)
[2024-12-17 07:11] LABS: ALT/SGPT 21 U/L (<40); AST/SGOT 24 U/L (<32); Albumin 2.5 gm/dL (3.2-5.2); Alkaline Phosphatase 67 U/L (39-117); Bilirubin,Direct < 0.2 mg/dL (0-0.3); Bilirubin,Total 0.3 mg/dL (0.1-1.0); Blood Urea Nitrogen 11 mg/dL (8-23); Calcium 7.9 mg/dL (8.6-10.4); Carbon Dioxide 20 mmol/L (22-30); Chloride 109 mmol/L (96-108); Globulin 2.6 gm/dL (2.2-3.7); Glomerular Filtration Rate 88; Glucose 89 mg/dL (70-105); Lactate Dehydrogenase 246 U/L (135-225); Phosphorous 2.6 mg/dL (2.5-4.5); Potassium 3.4 mmol/L (3.3-5.1); Sodium 141 mmol/L (133-145); Triglycerides 74 mg/dL (<150); Uric Acid 5.2 mg/dL (2.5-8.0)
[2024-12-17] MEDS: ALBUMIN HUMAN 12.5 GM/50 ML VIAL IV ONE (08:17)
[2024-12-17] MEDS: FUROSEMIDE 100 MG/10 ML VIAL IV ONE (08:40)
[2024-12-18] MEDS: 0.9 % SODIUM CHLORIDE 10 ML SYRINGE IV SCH (07:32)
[2024-12-19 08:18] VITALS: TEMP 98.8; O2SAT 97
== END 2024-12-19 12:28 | DRG 871 ==
LOC: ED 19:31 → ICU 12-14 02:39
PROVIDERS: ADMIT Internal Medicine; ATTEND Internal Medicine